=== PATIENT | male | born 1955 | race Caucasian/White ===

== ENCOUNTER → 2016-04-09 09:30 | Outpatient (CLI) | payer MEDICARE ==
[2015-09-26 06:48] VITALS: BMI 28.7
[~2016-04-09 09:30] MED LIST: BAYER CHEWABLE81 MG PO; COZAAR50 MG PO; LIPITOR40 MG PO; PAXIL40 MG PO; PLAVIX75 MG PO
== END | disposition home or self-care (01) ==
LOC: D.US 03-29 10:00
DX: M79.606 Pain in leg, unspecified (principal)

== ENCOUNTER 2016-09-27 11:24 | Observation (INO) | payer MEDICARE ==
[~2016-09-27] VITALS: Ht 170.2 cm; Wt 68.2 kg
--- NOTE | 2016-09-27 11:20 | NUR ---
RECEIVED PT FROM ADMISSIONS WALKING PT VERY ANXIOUS STATING HE IS NOT CRAZY BUT IF HE DOESNT SEE DR FIGUEROA HE IS GOING TO ATTEMPTS AT CALMING PT SOME WHAT CALMING PT HAS CONSENTED TO WEAR TELEMETRY AND ALLOW STAFF TO PLACE IV ACCESS REFUES VITAL SIGNS AT THIS TIME
[2016-09-27 12:00] VITALS: BP 171/90
[2016-09-27 13:10] LABS: BASOPHILS 0.3 % (0-2); EOSINOPHILS 1.1 % (0-7); HEMATOCRIT 42.9 % (42.0-54.0); IMMATURE GRANULOCYTES 0.3 % (0-5); LYMPHOCYTES 15.5 % (15-50); MCV 91.5 fL (80.0-100.0); MEAN PLATELET VOLUME 9.3 fL (7.4-10.4); MONOCYTES 8.2 % (2-11); NEUTROPHILS 74.6 % (40-80); PLATELET COUNT 242 10x3/uL (130-400); RBC 4.69 10x6/uL (4.20-6.10); RDW 12.3 % (11.5-14.5); WBC 7.4 10x3/uL (4.8-10.8)
[2016-09-27 13:15] LABS: ALBUMIN 4.2 g/dL (3.4-5.0); ALKALINE PHOSPHATASE 71 U/L (46-116); ALT (SGPT) 33 U/L (10-68); BILIRUBIN - TOTAL 0.63 mg/dL (0.2-1.3); CALC OSMOLALITY 283 mosm/kg (275-300); CARBON DIOXIDE 23.5 mmol/L (21.0-32.0); CHLORIDE - SERUM 103 mmol/L (98-107); CREATININE - SERUM 0.7 mg/dL (0.6-1.3); GLUCOSE 144 mg/dL (74-106); POTASSIUM - SERUM 3.6 mmol/L (3.5-5.1); PROTEIN - SERUM 7.4 g/dL (6.4-8.2); SODIUM 141 mmol/L (136-145); UREA NITROGEN 13 mg/dL (7-18); eGFR NON AFRICAN AMERICAN > 90 mL/min (90-120)
[2016-09-27 13:25] LABS: CKMB 5.3 U/L (0.0-3.6); CREATINE KINASE 536 UL (21-232); THYROID STIMULATING HORMONE 1.02 uIU/mL (0.36-3.74); TROPONIN-I < 0.017 ng/mL (0.000-0.060)
[2016-09-27] MEDS ORDERED: RISPERDAL1 MG PO (13:34)
[2016-09-27] MEDS ORDERED: ACETAMINOPHEN325 MG PO (13:40)
[2016-09-27] MEDS ORDERED: MYLANTA / MAALO30 ML PO (13:41)
[2016-09-27] MEDS ORDERED: CEPACOL SORE T1 EAC3 PO (13:42)
[2016-09-27] MEDS ORDERED: HYDROXYZINE HCL50 MG (13:43)
[2016-09-27] MEDS ORDERED: VISTARIL25 MG PO (13:44)
[2016-09-27] MEDS ORDERED: IMODIUM2 MG PO (13:45)
[2016-09-27] MEDS ORDERED: CLARITIN 10 MG10 MG PO (13:45)
[2016-09-27] MEDS ORDERED: BENADRYL50 MG PO (13:46)
[2016-09-27] MEDS ORDERED: BENZTROPINE ME0.5 MG PO (13:47)
[2016-09-27] MEDS ORDERED: ONDANSETRON4 MG/2 M3 IV (13:48)
[2016-09-27] MEDS ORDERED: TRIPLE ANTIB28.35 GM TP (13:48)
[2016-09-27 16:00] VITALS: BP 183/96
[2016-09-27 16:30] VITALS: BP 171/90
--- NOTE | 2016-09-27 17:46 | NUR ---
REVIEWED DISCHARGE INSTRUCTION WITH PT STATE UNDERSTAND COPY GIVEN SALINE LOCK DCD TO RFA WITH IV CATHETER INTACT WITHOUT REDNESS OR EDEMA TO SITE PT DISCHARGED PT HOME LEFT UNIT IN STABLE CONDITION VIA W/C WITH ALL PERSONAL BELONGINGS
--- NOTE | 2016-09-27 19:00 | NUR ---
RECEIVED REPORT AND ASSUMED PT CARE FROM DAY SHIFT NURSE @ THIS TIME.
[2016-09-27 19:26] VITALS: Ht 170.2 cm; Wt 68.2 kg
--- NOTE | 2016-09-27 19:46 | NUR ---
Patient Name: ATA MCKEON Admission Status: Urgent Accout number: [id number] Admission Date: 09-27-2016 : 1955 Admission Diagnosis: Attending: STAR Current LOS: 1 Anticipated DC Date: 09-28-2016 Planned Disposition: Inpatient Psych Facility Primary Insurance: [employer] PLANNED EXTERNAL PROVIDER: TO BE DETERMINED Discharge Planning Comments: * Is the patient Alert and Oriented? No 0 * PCP DR GUZMÁN 0 * Preadmission Environment Home Alone 0 * ADLs Independent 0 * Equipment None 0 * Other Equipment NO MEDICAL EQUIPMENT PROVIDER PREFERENCE 0 CM WAS WALKING TO ANOTHER PT'S ROOM, PT DEMANDED CM COME IN. CM MET WITH PT AND ATTEMPTED TO ASSESS PT FOR NEEDS AND DISCHARGE PLANNING. PT WAS NOT COOPERATIVE, REPORTING THE DOCTOR TOLD HIM THAT HE WAS GOING TO GO TO A PSYCHIATRIC FACILITY. PT REPORTS HE IS NOT GOING, HE DOES NOT NEED TO GO, HE NEEDS HIS MEDICATIONS OR HE IS GOING TO HAVE A HEART ATTACK AND HE HAS TOLD DR. BULLARD BUT NO ONE WILL GIVE HIM HIS MEDICATIONS. PT STATES THAT THE DOCTOR TOLD HIM HE IS MANIC, PT STATES THIS IS NOT TRUE. PT KEEPS REPEATING THE SAME THING OVER AND OVER QUICKLY HE CAN. PT REFUSES REDIRECTION. CM SPOKE TO DR GUZMÁN WHO REPORTS THAT PT HAS HAD PSYCHIATRIC CONSULT AND WILL NEED PSYCHIATRIC INPATIENT PLACEMENT SOON THEY CAN GET PT'S BLOOD PRESSURE STABALIZED, POSSIBLY TOMORROW, 09-28-16. PT WILL REQUIRE INPATIENT PSYCHIATRIC TREATMENT, CM TO BEGIN PLACEMENT EFFORTS ONCE PT IS MEDICALLY STABLE. Sock Lining Examiner: Jasvir Montenegro
[2016-09-27 20:00] VITALS: BP 140/108
--- NOTE | 2016-09-27 20:17 | NUR ---
PT HAS REPEATEDLY BEEN REDIRECTED TO HIS ROOM. HE IS SPEAKING IN CHOPPED SENTENCES AND REFERRING TO HIMSELF IN THE THIRD PERSON. KEEPS REPEATING HE HAS BEEN CALLING DR. GUZMÁN'S "EMERGENCY NUMBER" TO TRY AND "SAVE DR GUZMÁN'S MEDICAL LICENSE AND THIS HOSPITAL". STATES [facility] HAS BEEN CONTACTED AND THAT THIS HOSPITAL IS THE REASON THERE ARE SO MANY SUICIDES IN [place]. HE HAS BEEN DISRUPTIVE TO OTHER PT'S AND THEIR VISITORS AND RESIRECTED [facility] TO HIS ROOM. HIS SISTER AND BROTHER IN LAW ARE NOW HERE AT THE BEDSIDE AND SPEAKING TO HIM. PT TAKES HIS PM MEDS AND ATIVAN 0.5 MG AND HALDOL 2 MG PO GIVEN. WILL MONITOR CLOSELY FOR SAFETY.
--- NOTE | 2016-09-27 20:25 | NUR ---
RECEIVED CALL FROM DR FRANK, STATES ANSWERING SERVICE HAS NOTIFIED HIM THAT PT HAS REPEATEDLY CALLED THE ANSWERING SERVICE. MEDICATIONS AND INTERVENTIONS REVIEWED WITH DR FRANK AT THIS TIME. NO NEW ORDERS RECEIVED. WILL CONT TO MONITOR.
[2016-09-27 20:30] LABS: CREATINE KINASE 570 UL (21-232)
[2016-09-27 20:33] LABS: TROPONIN-I < 0.017 ng/mL (0.000-0.060)
--- NOTE | 2016-09-27 21:11 | NUR ---
SISTER REMAINS IN ROOM WITH PT AT THIS TIME. PT IS CALMER AND APPEARS TO BE RESTING. WILL CONT TO MONITOR.
--- NOTE | 2016-09-27 22:06 | NUR ---
PT'S FAMILY MEMBERS ATTEMPTING TO LEAVE AND PT AGITATED. HALDOL 2MG AND ATIVAN 0.5 MG IM TO RT VG GIVEN. PT'S SISTER AND HER SPOUSE DEPARTS AFTER ABOUT 10 MINUTES. PT WATCHING TV ON FAMILY'S DEPARTURE. WILL CONT TO MONITOR.
--- NOTE | 2016-09-27 23:30 | NUR ---
PT RESTING SOUNDLY, RESP EVEN AND UNLABORED. NSR ON MONITOR, HR 90'S. CALL LIGHT WITHIN REACH. WILL CONTINUE TO MONITOR.
--- NOTE | 2016-09-28 03:26 | NUR ---
PT CONT TO REST WELL WITHOUT C/O OR DISTRESS NOTED. RESP EVEN AND UNLABORED. NSR ON MONITOR, HR 65. WILL CONT TO MONITOR.
[2016-09-28 04:17] LABS: CREATINE KINASE 415 UL (21-232); TROPONIN-I < 0.017 ng/mL (0.000-0.060)
--- NOTE | 2016-09-28 07:30 | NUR ---
RESTING QUIETLY EYES CLOSED RESP UNLABORED NAD NOTED
[2016-09-28 08:00] VITALS: BP 105/65
[2016-09-28 08:07] VITALS: BP 90/47
--- NOTE | 2016-09-28 08:14 | NUR ---
DR GUZMÁN HERE TO SEE PT
[2016-09-28] MEDS ORDERED: LISINOPRIL10 MG PO (08:36)
[2016-09-28] MEDS ORDERED: LIPITOR40 MG PO (08:37)
--- NOTE | 2016-09-28 11:13 | NUR ---
JUST GOT OFF THE PHONE WITH THE PATIENTS SISTER. SHE IS VERY UGLY WITH HER WORDS IN REGARDS TO THE PATIENT BEING DISCHARGED. SHE IS REFUSING TO TAKE THE PATIENT HOME. EXPLAINED THAT THE DOCTOR HAS DISCHARGED HIM. EXPLAINED THAT THE PATIENT IS REFUSING TO BE PLACED IN A MENTAL HEALTH FACILITY AND BEING THAT HE IS OF NO HARM TO HIMSELF OR OTHERS, WE HAVE NO REASON TO PUT A HOLD ON HIM. SHE SAID THAT HER AND SOMEONE ARE ON THEIR WAY TO [place] TO TALK TO SOMEONE TO HAVE HIM INVOLUNTARILLY COMMITED TO A "PRIVATE" FACILITY WHERE HE "IS NOT GOING TO BE AROUND A KELLEN OF CRAZY PEOPLE. MY BROTHER IS NOT CRAZY, HE JUST HAD A LITTLE BREAK AND NEEDS TO BE SOMEWHERE FOR 2 WEEKS OR SO." SHE CONTINUED TO ESCULATE AND SPEED UP HER TALKING. SHE WAS ADIMATE THAT THE PATIENT WAS NOT GOING TO BE DISCHARGED TODAY. SHE WANTED THE NUMBER TO DR GUZMÁN'S OFFICE SO THAT SHE COULD TELL HIM HER BROTHER WAS NOT STABLE FOR DISCHARGE AND THAT HE WAS GOING TO HAVE TO KEEP HIM HERE AT THE HOSPITAL. THE OFFICE NUMBER WAS GIVEN TO HER, BUT EXPLAINED THAT THERE WAS NO GUARANTEE THAT HE WOULD TALK TO HER. AT THIS TIME, SHE ENDED THE CONVERSATION WITH ME.
[2016-09-28 12:06] VITALS: BP 86/49
[2016-09-28] MEDS ORDERED: ATIVAN0.5 MG PO (13:40)
--- NOTE | 2016-09-28 14:19 | NUR ---
DISCHARGE INSTRUCTIONS GIVEN TO PATIENT AND FAMILY. MEDICATIONS DISCUSSED WTIH PATIENT AND HE UNDERSTANDS. NEW SCRIPTS WERE ESCRIPTED TO JORGITO THAPA IN [place]. IV DCD WITH TIP INTACT. MONITOR OFF. TO CAR VIA .
== END 2016-09-28 18:16 | disposition home or self-care (01) ==
LOC: D.M2 11:24 → OBSVTIME 12:00 → D.M2 09-28 12:33
PROVIDERS: ADMIT Family Medicine
DX: I10 Essential (primary) hypertension (principal); F33.9 Major depressive disorder, recurrent, unspecified

== ENCOUNTER → 2018-10-02 11:48 | Outpatient (CLI) | payer MEDICAID ==
[2016-09-27 19:26] VITALS: BMI 23.5
[~2018-10-02 11:48] MED LIST changes: +ACETAMINOPHEN325 MG PO; +ATIVAN0.5 MG PO; +BENADRYL50 MG PO; +BENZTROPINE ME0.5 MG PO; +BUPROPION XL300 MG PO; +CEPACOL SORE T1 EAC3 PO; +CLARITIN 10 MG10 MG PO; +HYDROXYZINE HCL50 MG; +IMODIUM2 MG PO; +LISINOPRIL10 MG PO; +MYLANTA / MAALO30 ML PO; +ONDANSETRON4 MG/2 M3 IV; +RISPERDAL1 MG PO; +TRIPLE ANTIB28.35 GM TP; +VISTARIL25 MG PO
--- NOTE | 2018-10-14 09:52 | ST ---
PATIENT:ATA MCKEON MEDICAL RECORD: [id number] SEX: M LOCATION:[facility] ORDER #: ADMISSION DATE: 10/02/18 AGE OF PATIENT: 63 REFERRING PHYSICIAN: INTERPRETING PHYSICIAN: REGINA FIGUEROA MD DATE OF SERVICE: 10/02/2018 Nuclear Stress Test INDICATION: Angina, coronary artery disease, shortness of breath, and hyperlipidemia. He was exercised on standard Farooq protocol for 10 minutes, terminated due to achievement of maximum target heart rate response with 31 mCi of sestamibi injected at peak stress, 11 mCi were used previously for rest images. FINDINGS: Gated SPECT reveals preserved ejection fraction at 64% with decreased thickening and brightening throughout the inferior segments. SPECT imaging Cardiolite was used as myocardial perfusion agent. There are reversible changes anteriorly and apically. This includes the basal, mid, apical anterior segments as well as the apex itself and there is a fixed perfusion defect inferiorly compatible with previous inferior myocardial infarction. The degree of reversibility is mild to moderate. The amount of myocardium involved between the defect is large. OVERALL IMPRESSION: This is an intermediate to high risk nuclear stress test with fixed perfusion defect inferiorly, reversible ischemia anteroapically suggestive of multivessel coronary artery disease. We will proceed with coronary angiography as followup study. TRANSINT:[id number] Voice Confirmation ID: [id number] DOCUMENT ID: [id number] REGINA FIGUEROA MD at 0952 CC: COLT GUZMÁN MD [id number] DICTATION DATE: 10/03/18 1415 HOUSING MANAGER: 10/04/18 0252 DEP CLI 10/02/18 [place] [id number] [place] [id number]
== END | disposition home or self-care (01) ==
LOC: D.HCCARDIO 11:48
PROVIDERS: ATTEND Internal Medicine Interventional Cardiology
DX: I25.110 Atherosclerotic heart disease of native coronary artery with unstable angina pectoris (principal); R06.02 Shortness of breath; E78.5 Hyperlipidemia, unspecified

== ENCOUNTER 2018-10-08 08:03 | Outpatient (CLI) | payer MEDICAID ==
[~2018-10-08] VITALS: Ht 170.2 cm; Wt 72.3 kg
--- NOTE | ~2018-10-08 | HEMODYNAMI ---
PATIENT:ATA MCKEON MEDICAL RECORD: [id number] : 55 LOCATION:[facility] ADMISSION DATE: 10/08/18 Generatedon:10/09/20187:59 Patient name: ATA MCKEON Patient #: [id number] : 1955 Date of study: 10/08/2018 Page: Of Hemodynamic Procedure Report Patient Data Patient Demographics Procedure consent was obtained First Name: ATA Gender: Male Last Name: LINDA : 1955 Middle Initial: ROSALVA Age: 63 year(s) Patient #: [id number] Race: SSN: [id number] Additional ID: [id number] Contact details [address]: [address] [place] [address] State: [place] City: [place] Zip code: [address] Past Medical History History of disease Date Diagnosis Comments 09/26/2015 CAD Allergies Allergen Reaction Date Comments Reported Other allergy 10/08/2018 [facility] Admission Admission Data Admission Date: 10/08/2018 Admission Time: 8:03 Arrival Date: 10/08/2018 Arrival Time: 0:00 Admit Source: Other Insurance Payor: Private Room #: 2 health insurance [facility] #: [id number] Height (in.): 67 BSA: 1.86 (m2) Height (cm.): 170.18 BMI: 25.69 (kg/m2) Weight (lbs.): 164 Weight (kg.): 74.39 Medications upon Admission Medications Dosage Times Administered Last Remarks per Delivery Day Date and Time Aspirin 81 1 (any) Statin (any) 20 Current Diagnosis Diagnosis Description Stable angina Lab Results Lab Result Date: 10/08/2018 Lab Result Time: 0:00 Biochemistry Name Units Result Min Max BUN mg/dl 13 --(--*-)-- 7 18 Creatinine mg/dl 0.9 --(-*--)-- 0.6 1.3 eGFR ml/min 90 --(*---)-- 90 120 NONAFRICAN Procedure Procedure Types Cath Procedure Diagnostic Procedure [facility] w/Coronaries FFR/IVUS FFR Initial Sedation Charges Moderate Sedation up to 15 minutes PCI Procedure Coronary Stent Coronary Stent Initial x2 Coronary Stent Additional Procedure Description Procedure Date Procedure Date: 10/08/2018 Procedure Start Time: 10:46 Procedure End Time: 11:17 Procedure Staff Name Function Cruzhuseyin Fontanez RT Monitor Vimal Dean RN Nurse Nguyễn Shultz MD Performing Physician Law Mejia RT Scrub Elba Verdin RT Monitor Sarah Harvey RT Scrub Procedure Data Cath Procedure Fluoroscopy Diagnostic fluoroscopy Total fluoroscopy Time: 6.2 time: 6.2 min min Diagnostic fluoroscopy Total fluoroscopy dose: dose: 1345 mGy 1345 mGy Contrast Material Contrast Material Type Amount (ml) Isovue 300 152 Entry Location Entry Primary Successful Side Size Upsize Upsize Entry Closure Succes sful Closure Location (Fr) 1 (Fr) 2 (Fr) Remarks Device Remarks Femoral Right 5 Fr 6 Fr Exoseal artery Short Estimated blood loss: 10 ml Diagnostic catheters Device Type Used For End Catheter Placement MULTIPACK Pigtail 5 Fr Ventriculography catheter MULTIPACK JL 4.0 5Fr Procedure catheter MULTIPACK 3DRC 5Fr Procedure catheter Procedure Complications No complications Procedure Medications Medication Administration Route Dosage Oxygen etCO2 Nasal cannula 2 l/min Lidocaine 2% added to field 20 Heparin Flush Bag added to field 2 bags (1000units/500ml NS) 0.9% NaCl I.V. 100 ml/hr Versed I.V. 2 mg Fentanyl I.V. 100 mcg Versed I.V. 2 mg Fentanyl I.V. 50 mcg Heparin Bolus I.V. 4000 units Integrilin (Bolus I.V. 6.8 ml 2mg/ml) Plavix P.O. 600 mg Versed I.V. 1 mg Hemodynamics Rest BSA: 1.86 (m2) O2 Consumption: Estimated: 216.01 (ml/min) O2 Consumption indexed : Estimated:116.13 (ml/min/m) Heart Rate: 68 (bpm) Pressure Samples Time Site Value (mmHg) Purpose Heart Use Rate(bpm) 10:47 LV 112/14,21 Snapshot 61 Gradients Valve Time Site Site Mean SEP/DFP Peak To Heart Use 1 2 (mmHg) (sec/min) Peak Rate (mmHg) (bpm) Aortic 10:48 LV AO 63 Snapshots Pre Cath Intra NCS Post Cath Vital Signs Time Heart Resp SPO2 etCO2 NIBP (mmHg) Rhythm Pain Sedation Rate (ipm) (%) (mmHg) Status Level (bpm) 10:24:24 60 22 99 0 125/75(95) NSR 0 (11) 10(A) , No pain 10:28:36 66 13 98 33.9 126/77(109) NSR 0 (11) 10(A) , No pain 10:32:50 57 16 96 12.8 126/72(104) NSR 0 (11) 10(A) , No pain 10:36:58 60 24 96 0 127/87(102) NSR 0 (11) 10(A) , No pain 10:41:10 55 16 96 30.8 116/73(92) NSR 0 (11) 10(A) , No pain 10:45:13 60 15 94 19.5 118/82(102) NSR 0 (11) 9(A) , No pain 10:49:26 59 11 95 0 137/62(80) NSR 0 (11) 9(A) , No pain 10:53:41 63 13 93 29.3 130/65(89) NSR 0 (11) 9(A) , No pain 10:57:55 64 15 95 12.8 111/58(73) NSR 0 (11) 9(A) , No pain 11:02:03 65 16 94 33.1 104/61(79) NSR 0 (11) 9(A) , No pain 11:06:11 67 16 93 29.3 115/59(81) NSR 0 (11) 9(A) , No pain 11:10:19 68 18 96 0 111/70(93) NSR 0 (11) 9(A) , No pain 11:15:18 62 17 98 31.6 124/79(94) NSR 0 (11) 10(A) , No pain Medications Time Medication Route Dose Verified Delivered Reason Notes Effectiveness by by 10:29:18 Oxygen etCO2 2 Nguyễn Celis used for Nasal l/min Lexii Dean truck cleaner cannula 10:29:27 Lidocaine 2% added 20ml Nguyễn Adrian for local to vial Lexii Shultz MD anesthetic field 10:29:33 Heparin Flush added 2 Nguyễn Adrian used for Bag to bags Lexii Shultz MD procedure (1000units/500ml field NS) 10:29:42 0.9% NaCl I.V. 100 Nguyễn Celis Per physician ml/hr Lexii Dean RN 10:40:55 Versed I.V. 2 mg Nguyễn Celis for sedation Lexii Dean RN 10:41:01 Fentanyl I.V. 100 Nguyễn Celis for sedation mcg Lexii Dean RN 10:48:03 Fentanyl I.V. 50 Nguyễn Celis for sedation mcg Lexii Dean RN 10:48:59 Versed I.V. 2 mg Nguyễn Celis for sedation Lexii Dean RN 10:54:17 Heparin Bolus I.V. 4000 Nguyễn Celis for verif ied units Lexii Dean RN anticoagulation with dr shultz 10:56:22 Integrilin I.V. 6.8 Nguyễn Celis for waste d (Bolus 2mg/ml) ml Lexii Dean RN antiplatelet 3.2 ml therapy of vial 11:01:49 Versed I.V. 1 mg Nguyễn Celis for sedation Lexii Dean RN 11:13:09 Plavix P.O. 600 Ngyuễn Celis for mg Lexii Dean RN antiplatelet therapy Procedure Log Time Note 9:52:02 Informed consent obtained and on chart 9:57:03 Patient allergic to Other allergyLosartan 9:57:16 Patient Height : 67 inches 9:57:19 Patient Weight : 164 lbs 9:57:36 Arrival Date: 10/08/2018 12:00:00 AM 9:58:54 Admit Source: Other 9:58:55 Insurance Payor : Private health insurance 10:05:04 Current Diagnosis : Stable angina 10:07:59 Lab Result : eGFR NONAFRICAN 90 ml/min 10:07:59 Lab Result : Creatinine 0.9 mg/dl 10:07:59 Lab Result : BUN 13 mg/dl 10:08:44 Diagnostic Cath Status : Elective 10:13:36 Procedure Status Elective Heart Cath (OP). 10:13:39 Vimal Dean RN sent for patient. Start room use. 10:13:44 Time tracking: Regular hours (M-F 7:00 - 5:00) 10:13:51 Plan of Care:Hemodynamics will remain stable., Cardiac rhythm will remain stable., Comfort level will be maintained., Respiratory function will remain adequate., Patient/ family verbilizes understanding of procedure., Procedure tolerated without complication., Recovers from procedure without complications.. 10:14:15 Patient received from Pre/Post Procedure Room to CCL 2 Alert and oriented. Tansferred to table in Supine position. 10:15:08 Correct patient and procedure confirmed by team. 10:15:08 Warm blankets applied, and christian hugger turned on for patient comfort. 10:15:09 ECG and BP/O2 sat monitors applied to patient. 10:15:34 H&P Date Dictated: 09/30/2018 Within 30 days and on chart.. 10:15:36 Pre-procedure instructions explained to patient. 10:15:39 Family in waiting room. 10:15:41 Patient NPO since Midnight. 10:15:44 Is the patient allergic to Iodine/contrast media? No. 10:15:47 Was the patient premedicated? Yes 10:16:29 Is patient on blood thinner?No 10:16:35 ACC The patient was administered the following blood thiners within the last 24 hours: ACCAspirin 10:23:08 Patient diabetic? No. 10:23:17 Vital chart was started 10:23:20 Baseline sample Acquired. 10:23:25 Full Disclosure recording started 10:29:18 Oxygen 2 l/min etCO2 Nasal cannula was administered by Vimal Dean RN; used for procedure; 10:29:27 Lidocaine 2% 20ml vial added to field was administered by Nguyễn Shultz MD; for local anesthetic; 10:29:32 Pre procedure: right dorsailis pedis pulse 2+ Normal; easily identifiable; not easily obliterated 10:29:33 Heparin Flush Bag (1000units/500ml NS) 2 bags added to field was administered by Nguyễn Shultz MD; used for procedure; 10:29:42 0.9% NaCl 100 ml/hr I.V. was administered by Vimal Dean RN; Per physician; 10:29:51 Patient pain scale 0/10 ?. 10:30:11 IV patent on arrival in left hand with 0.9% NaCl at O. 10:30:19 Lab results completed and on chart. 10:30:24 Right groin area was prepped with chlora-prep and draped in sterile fashion 10:30:30 Snore? Yes 10:30:32 Sleep apnea? No 10:30:37 Dentures? No ? 10:30:39 Alarms reviewed by Carrie N. 10:30:40 Sharps counted by scrub and verified by RMernaN. 10:30:52 Use device set Femoral Dx 10:30:53 Bag Decanter (2002S) opened to sterile field. 10:30:53 ACIST Syringe (48542) opened to sterile field. 10:30:54 Medline Cath Pack ([id number]) opened to sterile field. 10:30:55 ACIST Hand Control (60040) opened to sterile field. 10:30:56 ACIST Manifold (79823) opened to sterile field. 10:30:59 DIAGNOSTIC Multipack 5Fr catheter set (YV8274) opened to sterile field. 10:31:01 Tegaderm 4 x 4 (1626W) opened to sterile field. 10:31:03 EMERALD Guide Wire (502-937) opened to sterile field. 10:31:03 SHEATH 5FR [place] (VBK025) opened to sterile field. 10:39:15 --------ALL STOP TIME OUT------ 10:39:15 Physician arrived 10:39:16 Final Timeout: patient, procedure, and site verified with staff and physician. All members of the team are in agreement. 10:39:18 Right groin site verified by team. 10:39:34 Fire Safety Assessment: A--An alcohol-based skin anteseptic being used preoperatively., C--Open oxygen or nitrous oxide is being used., D--An ESU, laser, or fiber-optic light is being used. 10:39:40 Physical assessment completed. ASA score P 3 - A patient with severe systemic disease as per Nguyễn Shultz MD. 10:40:42 1) 90+ Normal kidney functon but urine findings or structural abnormalities or genetic trait point to kidney disease. 10:40:46 Maximum allowable contrast dose (3.7 X eGFR X 0.75)250 ml. 10:40:50 Sedation plan: IV Moderate Sedation Medication:Versed, Fentanyl 10:40:55 Versed 2 mg I.V. was administered by Vimal Dean RN; for sedation; 10:41:01 Fentanyl 100 mcg I.V. was administered by Vimal Dean RN; for sedation; 10:43:27 Zero performed for pressure channel P1 10:43:48 Zero performed for pressure channel P1 10:45:05 Procedure started. 10:46:54 Local anesthetic to right femoral artery with Lidocaine 2% by Nguyễn Shultz MD.INITIAL ACCESS ONLY 10:47:07 A 5 Fr sheath was inserted into the Right Femoral artery 10:47:36 J wire advanced. 10:47:45 A MULTIPACK Pigtail 5 Fr catheter was advanced over the wire and used for Ventriculography. 10:48:03 Fentanyl 50 mcg I.V. was administered by Vimal Dean RN; for sedation; 10:48:13 EF : 55 % 10:48:15 Catheter removed. 10:48:31 A MULTIPACK JL 4.0 5Fr catheter was advanced over the wire and used for Procedure. 10:48:59 Versed 2 mg I.V. was administered by Vimal Dean RN; for sedation; 10:49:52 LCA angiography performed. 10:49:54 Catheter removed. 10:50:01 A MULTIPACK 3DRC 5Fr catheter was advanced over the wire and used for Procedure. 10:50:04 RCA angiography performed. 10:50:42 Catheter removed. 10:52:18 [place] Verrata Plus pressure wire (76915V) opened to sterile field. 10:52:54 GUIDE 6FR XBLAD 3.5 catheter ([id number]) opened to sterile field. 10:52:55 CHOICE PT Extra Support 182cm wire ([id number]) opened to sterile field. 10:52:56 INFLATOR Merit BasixCompak (CP7894) opened to sterile field. 10:52:57 SHEATH 6FR [place] (NPF616) opened to sterile field. 10:53:20 Sheath upsized to a 6 Fr Short. 10:53:31 6 Fr XBLAD3.5 guide catheter was inserted over the wire 10:54:17 Heparin Bolus 4000 units I.V. was administered by Vimal Dean RN; for anticoagulation; verified with dr shultz 10:56:22 Integrilin (Bolus 2mg/ml) 6.8 ml I.V. was administered by Vimal Dean RN; for antiplatelet therapy; wasted 3.2 ml of vial 10:57:33 FFR/IFR wire advanced. 10:57:50 dLAD lesion measured at .90 with IFR 11:00:12 Place stent Inflation Number: 1 A COBRA RX 2.5 X 15 Stent was prepped and advanced across the Dist LAD 70. The stent was deployed at 11 MJ for 0:08 (min:sec) 0. 11:00:39 Wire removed. 11:01:12 choice pt wire advanced. 11:01:43 ACT drawn and resulted at 00R seconds. (normal therapeutic range 180-240 seconds). 11:01:49 Versed 1 mg I.V. was administered by Vimal Dean RN; for sedation; 11:01:54 Wire advanced across lesion. 11:03:58 Place stent Inflation Number: 1 A COBRA RX 3.0 X 08 Stent was prepped and advanced across the Prox CX 90. The stent was deployed at 11 MJ for 0:06 (min:sec) 0. 11:04:57 Inflation number: 2 The stent balloon was then re-inflated across the Prox CX 95 to 7 MJ for 0:07 (min:sec) . 11:06:50 Wire redirected to ramus. 11:06:53 Stent catheter was removed intact over wire. 11:07:00 Inflate balloon Inflation number: 2 A EUPHORA 2.5 x 12 Balloon ([id number]) was prepped and advanced across the Ramus 0, then inflated to 7 MJ for 0:10 (min:sec) . 11:07:53 Place stent Inflation Number: 1 A COBRA RX 2.5 X 8 Stent was prepped and advanced across the Ramus 95. The stent was deployed at 11 MJ for 0:10 (min:sec) 0. 11:08:00 Stent catheter was removed intact over wire. 11:08:12 Wire removed. 11:08:13 Guide catheter removed. 11:09:00 EXOSEAL 6Fr (EX600) opened to sterile field. 11:09:57 Sheath removed intact; hemostasis achieved with Exoseal to the Right Femoral artery. 11:10:03 Procedure ended.(Physican Out) 11:10:30 Fluoroscopy time 06.20 minutes. 11:10:40 Fluoroscopy dose: 1345 mGy 11:10:40 Flurop Dose total: 1345 11:10:49 Dose Area Product 57139 mGy/cm. 11:10:54 Contrast amount:Isovue 300 152ml. 11:10:58 Maximum allowable dose exceeded? No. 11:10:59 Sharps counted by scrub and verified by R.N. 11:11:03 Insertion/operative site no bleeding no hematoma. 11:11:08 Post Procedure Pulses reassessed and unchanged 11:11:13 Post-procedure physical assessment completed. ASA score P 3 - A patient with severe systemic disease as per Nguyễn Shultz MD. 11:11:18 Post procedure rhythm: unchanged. 11:11:21 Estimated blood loss: 10 ml 11:11:23 Post procedure instruction explained to patient.Patient verbalizes understanding. 11:12:54 Procedure type changed to Cath procedure, Diagnostic procedure, LHC, LHC w/Coronaries, FFR/IVUS, FFR Initial, Sedation Charges, Moderate Sedation up to 15 minutes, PCI procedure, Coronary Stent, Coronary Stent Initial x2, Coronary Stent Additional 11:12:56 Procedure and supply charges have been captured, reviewed, submitted and are correct. 11:13:09 Plavix 600 mg P.O. was administered by Vimal Dean RN; for antiplatelet therapy; 11:13:32 Procedure Complication : No complications 11:16:21 Vital chart was stopped 11:17:25 See physician's report for complete and final results. 11:17:27 Report given to Pre/Post Procedure Room. 11:17:29 Patient transfered to Pre/Post Procedure Room with Stretcher. 11:17:32 Full Disclosure recording stopped 11:17:32 Procedure ended. 11:17:39 ACC-PCI Only Patient was given prescriptions, or instructed by Nguyễn Shultz MD to start/continue the following medications upon discharge: Plavix 11:17:41 End room use (Document Last) Intervention Summary Intervention Notes Time ActionType Lesion and Equipment Action# Pressure Duration Attributes Used 11:00:12 Place stent Dist LAD COBRA RX 1 11 00:08 2.5 X 15 Stent 11:03:58 Place stent Prox CX COBRA RX 1 11 00:06 3.0 X 08 Stent 11:04:57 Reinflate Prox CX COBRA RX 2 7 00:07 stent 3.0 X 08 balloon Stent 11:07:00 Inflate Ramus EUPHORA 2 7 00:10 balloon 2.5 x 12 Balloon ([id number]) 11:07:53 Place stent Ramus COBRA RX 1 11 00:10 2.5 X 8 Stent Device Usage Item Name Manufacture Quantity Catalog Number Hospital Part Current Minimal Lot# / Charge Number Stock Stock Serial# Code ACIST Syringe Acist 1 70216 933820 865749 890738 20 (57228) Medical Systems Inc Bag Decanter Microtek 1 213123 88320 350540 5 () Medical Inc. Medline Cath Medline 1 [id number] 074774 15104 866842 5 Pack ([id number]) ACIST Hand Acist 1 31685 251084 224059 536113 5 Control Medical (68260) Systems Inc ACIST Manifold Acist 1 70417 801700 457013 093198 5 (18784) Medical Systems Inc DIAGNOSTIC Cardinal 1 MG6722 452160 65976 660534 30 Multipack 5Fr Health catheter set (FP4855) Tegaderm 4 x 4 3M 1 1626W 196371 299097 007037 5 (1626W) SHEATH 5FR Terumo 1 WTV033 633703 230023 342995 5 [place] (AQK463) EMERALD Guide Cardinal 1 502-455 321627 415825 077689 5 Wire (502-455) Health MULTIPACK Cardinal 1 895899 5 Pigtail 5 Fr Health catheter MULTIPACK JL Cardinal 1 606393 5 4.0 5Fr Health catheter MULTIPACK 3DRC Cardinal 1 573166 5 5Fr catheter Health [place] 1 96734A 289469 055642642 856351 5 Verrata Plus pressure wire (01706U) GUIDE 6FR Cardinal 1 41216446 420945 569310 462855 10 XBLAD 3.5 Health catheter (76400698) CHOICE PT Cranberry 1 [id number] 404669 706507 543975 5 Extra Support Scientific 182cm wire (6828823N2) INFLATOR Merit Merit 1 DY9206 355855 158446 590644 15 Arnica Medical (AY8425) SHEATH 6FR Terumo 1 XMC754 229987 734057 793135 40 [place] (YYB918) COBRA RX 2.5 X Celonova 1 222574 508653260 6875236 1 [id number] 15 stent Biosciences () COBRA RX 3.0 X Celonova 1 201668 212034073 9276408 4 [id number] 08 stent Biosciences () COBRA RX 2.5 X Celonova 1 400753 576117551 9936724 4 2 [id number] 8 stent Biosciences () EXOSEAL 6Fr Cardinal 1 EX600 719513 613409 597877 10 (EX600) Health EUPHORA 2.5 x Medtronic 1 [id number] 697427 090151 987971 5 12 Balloon ([id number]) Signature Audit [place] Stage Time Signature Unsigned Intra-Procedure 10/08/2018 Vimal Fontanez RT(R) 11:18:26 AM 10/08/2018 4:33:20 PM Intra-Procedure 10/08/2018 Cruz Mejia RT(R) 4:40:59 PM RT(R) 10/09/2018 7:52:11 AM Intra-Procedure 10/09/2018 Law Mejia 7:59:18 AM RT(R) Signatures Monitor : Cruz Fontanez RT Signature : Date : Time : Nurse : Vimal Dean RN Signature : Date : Time : Performing Physician : Signature : Nguyễn Shultz MD Date : Time : Monitor : Elba Verdin Signature : RT Date : Time : [place] [id number] [place] [address]
[~2018-10-08 08:03] MED LIST changes: -BUPROPION XL300 MG PO
[2018-10-08] MEDS ORDERED: BUPROPION XL300 MG PO (08:17)
[2018-10-08 08:28] VITALS: BP 127/80; Ht 170.2 cm; Wt 72.3 kg
[2018-10-08 09:15] LABS: CALC OSMOLALITY 283 mosm/kg (275-300); CALCIUM 8.6 mg/dL (8.5-10.1); CARBON DIOXIDE 23.9 mmol/L (21.0-32.0); CHLORIDE - SERUM 107 mmol/L (98-107); CHOLESTEROL, TOTAL 159 mg/dL (0-200); CREATININE - SERUM 0.9 mg/dL (0.6-1.3); GLUCOSE 114 mg/dL (74-106); HDL CHOLESTEROL 53 mg/dL (32-96); LDL CHOLESTEROL 90 mg/dL (0-100); LDL-HDL RATIO 1.7 ratio (1.5-3.5); POTASSIUM - SERUM 3.9 mmol/L (3.5-5.1); SODIUM 142 mmol/L (136-145); TRIGLYCERIDE 80 mg/dL (30-200); UREA NITROGEN 13 mg/dL (7-18); eGFR NON AFRICAN AMERICAN > 90 mL/min (90-120)
[2018-10-08 09:28] LABS: BASOPHILS 0.4 % (0-2); EOSINOPHILS 3.9 % (0-7); HEMATOCRIT 42.7 % (42.0-54.0); HEMOGLOBIN 15.1 g/dL (13.5-17.5); IMMATURE GRANULOCYTES 0.1 % (0-5); LYMPHOCYTES 37.7 % (15-50); MCH 32.4 pg (26.0-34.0); MCHC 35.4 g/dL (31.0-37.0); MCV 91.6 fL (80.0-100.0); MEAN PLATELET VOLUME 9.2 fL (7.4-10.4); MONOCYTES 7.9 % (2-11); PLATELET COUNT 211 10x3/uL (130-400); RBC 4.66 10x6/uL (4.20-6.10); RDW 12.7 % (11.5-14.5); WBC 7.5 10x3/uL (4.8-10.8)
--- NOTE | 2018-10-08 11:30 | NUR ---
PT RECEIVED VIA STRETCHER FROM SOFTWARE [employer]AL[employer] SPECIALIST [employer]. PT DROWSY BUT RESPONDS TO VERBAL STIMULI. PT DENIES CHEST PAIN OR DISCOMFORT. IV PATENT INFUSING VIA ORDERS. R GROIN W 6FR EXOCELE, DRESSING CDI NO BLEEDING OR HEMATOMA NOTED. LEG PINK AND WARM AND PEDAL PULSES PALPABLE. HR NSR RATE 60, BP 131/81, O2 SAT 98 ON 2L VIA NC. PT INSTRUCTED TO KEEP HEAD ON PILLOW AND LEG STRAIGHT, HE VERBALIZED UNDERSTANDING. CALL LIGHT IN REACH, DENIES NEEDS
[2018-10-08] MEDS ORDERED: PLAVIX75 MG PO (11:36)
--- NOTE | 2018-10-08 12:00 | NUR ---
PT RESTING COMFORTABLY, R GROIN SOFT, DRESSING CDI NO BLEEDING OR SWELLING NOTED. LEG PINK AND WARM, PEDAL PULSES PALPABLE. COLA AND JUICE GIVEN PER REQUEST. DENIES NAUSEA OR PAIN AT THIS TIME. CALL LIGHT IN REACH.
--- NOTE | 2018-10-08 12:45 | NUR ---
PT STILL RESTING W/O COMPLAINTS. VSS. R GROIN SOFT, NO BLEEDING OR SWELLING NOTED. CALL LIGHT IN REACH.
--- NOTE | 2018-10-08 13:15 | NUR ---
PT CONTINUES TO SLEEP COMFORTABLY. GROIN REMAINS SOFT NO BLEEDING OR SWELLING NOTED. LEG PINK AND WARM, PEDAL PULSES PALPABLE. TOLERATING FLUIDS. DENIES PAIN OR NEEDS AT THIS TIME. CALL LIGHT IN REACH
--- NOTE | 2018-10-08 13:47 | NUR ---
PT SLEEPING, NO CHANGE IN CONDITION. GROIN REMAINS W/O BLEEDING OR SWELLING. VSS. CALL LIGHT IN REACH
--- NOTE | 2018-10-08 14:11 | NUR ---
GROIN DRESSING REMAINS CDI NO BLEEDING OR HEMATOMA NOTED. HOB ELEVATED SLIGHTLY. SANDWICH TRAY SERVED. VSS. IV PATENT INFUSING VIA ORDERS. CALL LIGHT IN REACH. PT DENIES PAIN OR NEEDS AT THIS TIME.
--- NOTE | 2018-10-08 14:45 | NUR ---
PT SITTING UP WATCHING TV, TOLERATED SANDWICH AND DRINK W/O NAUSEA. DENIES PAIN OR DISCOMFORT. GROIN DRESSING REMAINS CDI NO BLEEDING OR SWELLING NOTED. VSS. CALL LIGHT IN REACH
--- NOTE | 2018-10-08 15:05 | NUR ---
DISCHARGE INSTRUCTIONS REVIEWED W PT, EDUCATED ON IMPORTANCE OF GETTING PLAVIX FILLED AND STARTING IT TOMORROW. HE VERBALIZED UNDERSTANDING. IV REMOVED W CATH INTACT, MONITORS REMOVED. PT UP TO DRESS FOR DISCHARG
--- NOTE | 2018-10-08 15:15 | NUR ---
PT AMBULATED TO BR, VOIDING W/O DIFFICULITY. 1525 PT DISCHARGED VIA WC TO PRIVATE VEHICLE W RIDE FROM FRIEND WITH ALL BELONGINGS.
--- NOTE | 2018-10-14 09:52 | OP ---
PATIENT NAME: ATA MCKEON MEDICAL RECORD: [id number] :55 LOCATION:D.CAT ADMISSION DATE: SURGEON: REGINA FIGUEROA MD DATE OF OPERATION: 10/08/2018 DATE OF SERVICE: 10/08/2018 PROCEDURES: 1. PTCA stent LAD. 2. PTCA stent left circumflex. 3. PTCA stent ramus intermedius. 4. IFR. 5. Left heart catheterization. 6. Selective coronary angiography. 7. Left ventriculogram. INDICATION: Angina and coronary artery disease. Nuclear stress test showing anterolateral ischemia. PROCEDURE IN DETAIL: After informed consent was obtained and after a detailed description of the risks, benefits as well as alternative therapies, the patient elected to proceed with angiogram and angioplasty. The right femoral area was prepped and draped in normal sterile fashion. Right femoral artery was cannulated via modified Seldinger technique with placement of 6-Ukrainian sheath. All catheters exchanged through this sheath. FINDINGS: Left ventriculogram was performed in standard 30-degree NELSON view, reveals good cardiac wall motion, ejection fraction 55%. SELECTIVE CORONARY ANGIOGRAPHY: 1. Left main is with no significant angiographic disease. 2. Left anterior descending has a 70% stenosis in the mid vessel. IFR was borderline at 90%; however, this correlates with the nuclear stress test defect anteriorly. 3. Left circumflex has 90% stenosis at the ostium. The ramus intermedius has 95% stenosis at the ostium. After this in the ramus intermedius, there was a previously placed stent that is widely patent. 4. The right coronary has previously placed stent that is widely patent. No significant disease elsewise of the RCA or its branches. PTCA STENT OF THE LAD: The stent used was a 2.5 x 15 mm Cobra. Result was 0% residual stenosis. PTCA STENT OF THE LEFT CIRCUMFLEX: The stent used was a 3.0 x 8 mm Cobra. Result was 0% residual stenosis. PTCA STENT OF THE RAMUS INTERMEDIUS: The stent used was a 2.5 x 8 mm Cobra. Result was 0% residual stenosis. OVERALL IMPRESSION: Successful percutaneous transluminal coronary angioplasty stent of the left anterior descending going from 70% initial stenosis to 0% residual stenosis. Successful percutaneous transluminal angioplasty stent of the left circumflex going from 90% initial stenosis to 0% residual stenosis. Successful percutaneous transluminal coronary angioplasty stent of the ramus intermedius going from 95% initial stenosis to 0% residual stenosis. OPERATIVE REPORT [id number] ATA MCKEON TRANSINT:[id number] Voice Confirmation ID: [id number] DOCUMENT ID: [id number] REGINA FIGUEROA MD at 0952 CC: [id number] DICTATION DATE: 10/08/18 1115 FINANCE DIRECTOR: 10/08/18 1138 DEP CLI 10/08/18 [place] [id number]
== END 2018-10-08 15:25 | disposition home or self-care (01) ==
LOC: D.CATH 08:03
PROVIDERS: ATTEND Internal Medicine Interventional Cardiology
DX: I25.119 Atherosclerotic heart disease of native coronary artery with unspecified angina pectoris (principal); R94.39 Abnormal result of other cardiovascular function study; Z01.812 Encounter for preprocedural laboratory examination

== ENCOUNTER 2019-05-15 08:36 | Outpatient (CLI) | payer MEDICARE ==
[~2019-05-15] VITALS: Ht 170.2 cm; Wt 74.1 kg
--- NOTE | ~2019-05-15 | OP ---
PATIENT NAME: ATA MCKEON MEDICAL RECORD: [id number] :55 LOCATION:D.CAT ADMISSION DATE: SURGEON: REGINA FIGUEROA MD DATE OF OPERATION: 05/15/2019 PROCEDURES: 1. Percutaneous transluminal coronary angioplasty stent ramus intermedius. 2. Percutaneous transluminal coronary angioplasty stent of left circumflex. 3. Left heart catheterization. 4. Selective coronary angiography. 5. Left ventriculogram. INDICATION: Angina and coronary artery disease. PROCEDURE PERFORMED: After informed consent was obtained, detailed description of risks, benefits as well as alternative therapies, the patient elected to proceed with angiogram and angioplasty. The right femoral area was prepped and draped in normal sterile fashion. Right femoral artery was cannulated via modified Seldinger technique with placement of 6-[place]ij[place] sheath. All catheters exchanged through this sheath. FINDINGS: The left ventriculogram was performed in standard 30-degree NELSON view, reveals good cardiac wall motion, ejection fraction estimated 60%. SELECTIVE CORONARY ANGIOGRAPHY: 1. Left main is with no significant angiographic disease. 2. Left anterior descending has moderate irregularities, but no flow-limiting stenosis. 3. The left circumflex has 95% stenosis at the ostium. 4. Ramus intermedius has 95% stenosis at the ostium. 5. The right coronary has previously placed stent that is widely patent with no significant restenosis. No disease elsewise of the RCA or its branches. PTCA STENT OF THE CIRCUMFLEX AND RAMUS INTERMEDIUS: The ramus intermedius was addressed with a 2.75 x 8 mm [place] and the circumflex with a 3.0 x 8 mm [place]. Result was 0% residual stenosis. OVERALL IMPRESSION: Successful percutaneous transluminal coronary angioplasty stent of the left circumflex and the ramus intermedius, both going from 95% initial stenosis to 0% residual. TRANSINT:[id number] Voice Confirmation ID: [id number] DOCUMENT ID: [id number] REGINA FIGUEROA MD CC: [id number] DICTATION DATE: 05/15/19 1341 PRECISION LENS POLISHER: 05/15/19 1846 DEP CLI 05/15/19 [facility] [address] [id number]
--- NOTE | ~2019-05-15 | HEMODYNAMI ---
PATIENT:ATA MCKEON MEDICAL RECORD: [id number] : 55 LOCATION:[facility] ADMISSION DATE: 05/15/19 Generatedon:05/15/201913:43 Patient name: ATA MCKEON Patient #: [id number] : 1955 Date of study: 05/15/2019 Page: Of Hemodynamic Procedure Report Patient Data Patient Demographics Procedure consent was obtained First Name: ATA Gender: Male Last Name: LINDA : 1955 Middle Initial: ROSALVA Age: 64 year(s) Patient #: [id number] Race: SSN: [id number] Additional ID: [id number] Contact details Address: [address] [place] [address] [place] B[place]IG[place] State: [place] City: [place] Zip code: [address] Past Medical History History of disease Date Diagnosis Comments 09/26/2015 CAD Allergies Allergen Reaction Date Comments Reported Other allergy 10/08/2018 Losartan Other allergy 05/15/2019 losartan Admission Admission Data Admission Date: 05/15/2019 Admission Time: 8:36 Arrival Date: 05/15/2019 Arrival Time: 0:00 Admit Source: Emergency Insurance Payor: Medicare department [facility] #: [id number] Height (in.): 67 BSA: 1.85 (m2) Height (cm.): 170.18 BMI: 25.53 (kg/m2) Weight (lbs.): 163 Weight (kg.): 73.94 Lab Results Lab Result Date: 05/15/2019 Lab Result Time: 0:00 Biochemistry Name Units Result Min Max BUN mg/dl 12 --(-*--)-- 7 18 CK-MB ng/ml 0.8 --(*---)-- 0 3.6 Creatinine mg/dl 0.9 --(-*--)-- 0.6 1.3 eGFR ml/min 90 --(*---)-- 90 120 NONAFRICAN Troponin l ng/ml 0.017 --(-*--)-- 0 0.06 CBC Name Units Result Min Max Hematocrit % 49.5 --(--*-)-- 42 54 Hemoglobin g/dl 49.5 --(----)-* 13.5 17.5 Procedure Procedure Types Cath Procedure Diagnostic Procedure [facility] w/Coronaries Sedation Charges Moderate Sedation up to 30 minutes PCI Procedure Coronary Stent Coronary Stent Initial x2 Hemochron ACT Test Procedure Description Procedure Date Procedure Date: 05/15/2019 Procedure Start Time: 13:18 Procedure End Time: 13:41 Procedure Staff Name Function Nguyễn Shultz MD Performing Physician Sarah Harvey RT Monitor Lauren Edgar RN Nurse Lulú Jensen RT Scrub Procedure Data Cath Procedure Fluoroscopy Diagnostic fluoroscopy Total fluoroscopy Time: 7 time: 7 min min Diagnostic fluoroscopy Total fluoroscopy dose: 342 dose: 342 mGy mGy Contrast Material Contrast Material Type Amount (ml) Isovue 370 122 Entry Location Entry Primary Successful Side Size Upsize Upsize Entry Closure Succes sful Closure Location (Fr) 1 (Fr) 2 (Fr) Remarks Device Remarks Femoral Right 6 Fr Exoseal artery Short Estimated blood loss: 10 ml Diagnostic catheters Device Type Used For End Catheter Placement MULTIPACK Pigtail 5 Fr Procedure catheter MULTIPACK JL 4.0 5Fr Procedure catheter MULTIPACK 3DRC 5Fr Procedure catheter Procedure Complications No complications Procedure Medications Medication Administration Route Dosage 0.9% NaCl I.V. 100 ml/hr Oxygen etCO2 Nasal cannula 2 l/min Lidocaine 2% added to field 20 Heparin Flush Bag added to field 2 bags (1000units/500ml NS) Versed I.V. 2 mg Fentanyl I.V. 50 mcg Versed I.V. 2 mg Fentanyl I.V. 50 mcg Versed I.V. 2 mg Fentanyl I.V. 50 mcg Versed I.V. 2 mg Fentanyl I.V. 50 mcg Ativan 2 mg Heparin Bolus I.V. 4000 units Integrilin (Bolus I.V. 6.8 ml 2mg/ml) Integrilin (Bolus I.V. 3.2 ml 2mg/ml) Plavix P.O. 600 mg Hemodynamics Rest BSA: 1.85 (m2) HGB: 49.5 (g/dl) O2 Consumption: Estimated: 214.38 (ml/min) O2 Co nsumption indexed: Estimated:115.88 (ml/min/m) Heart Rate: 68 (bpm) Snapshots Pre Cath Intra NCS Post Cath Vital Signs Time Heart Resp SPO2 etCO2 NIBP (mmHg) Rhythm Pain Sedation Rate (ipm) (%) (mmHg) Status Level (bpm) 12:55:15 58 12 98 27 171/89(112) NSR 0 (11) 10(A) , No pain 12:59:35 60 13 100 12.1 150/88(110) NSR 0 (11) 10(A) , No pain 13:03:50 65 14 100 12.1 139/82(100) NSR 0 (11) 10(A) , No pain 13:07:59 60 15 99 38 134/79(114) NSR 0 (11) 10(A) , No pain 13:12:15 59 11 98 14 122/59(79) NSR 0 (11) 10(A) , No pain 13:16:19 71 10 98 18.2 138/83(111) NSR 0 (11) 10(A) , No pain 13:20:25 63 12 100 38 133/93(130) NSR 0 (11) 10(A) , No pain 13:24:31 76 11 100 39.6 133/84(108) NSR 0 (11) 10(A) , No pain 13:28:39 78 14 99 35.8 132/80(108) NSR 0 (11) 10(A) , No pain 13:32:50 77 12 99 41.1 141/69(112) NSR 0 (11) 10(A) , No pain 13:36:58 80 14 100 35 151/88(124) NSR 0 (11) 10(A) , No pain 13:41:10 78 13 99 35 158/93(132) NSR 0 (11) 10(A) , No pain Medications Time Medication Route Dose Verified Delivered Reason Notes Effectiveness by by 12:54:17 0.9% NaCl I.V. 100 Nguyễn Peaceyla used for ml/hr Lexii Edgar wardrobe coordinator 12:54:23 Oxygen etCO2 2 Nguyễn Ascencioa used for Nasal l/min Lexii Edgar procedure cannula RN 12:54:28 Lidocaine 2% added 20ml Nguyễn Adrian for local to vial Lexii Shultz MD anesthetic field 12:54:32 Heparin Flush added 2 Nguyễn Adrian used for Bag to bags Lexii Shultz MD procedure (1000units/500ml field NS) 13:07:47 Versed I.V. 2 mg Nguyễn Lauren for sedation Lexii Edgar RN 13:07:58 Fentanyl I.V. 50 Nguyễn Lauren for sedation mcg Lexii Edgar RN 13:11:07 Versed I.V. 2 mg Nguyễn Lauren for sedation Lexii Edgar RN 13:11:14 Fentanyl I.V. 50 Nguyễn Lauren for sedation mcg Lexii Edgar RN 13:15:01 Versed I.V. 2 mg Nguyễn Lauren for sedation Lexii Edgar RN 13:15:07 Fentanyl I.V. 50 Nguyễn Lauren for sedation mcg Lexii Edgar RN 13:20:11 Versed I.V. 2 mg Nguyễn Lauren for sedation Lexii Edgar RN 13:20:25 Fentanyl I.V. 50 Nguyễn Lauren for sedation mcg Lexii Edgar RN 13:23:32 Ativan IVP 2 mg Nguyễn Lauren for sedation Lexii Edgar RN 13:23:57 Heparin Bolus I.V. 4000 Nguyễn Lauren for verif ied units Lexii Edgar anticoagulation with Dr. TED Shultz 13:24:09 Integrilin I.V. 6.8 Nguyễn Lauren for (Bolus 2mg/ml) ml Lexii Edgar antiplatelet RN therapy 13:24:21 Integrilin I.V. 3.2 Nguyễn Lauren for (Bolus 2mg/ml) ml Lexii Edgar antiplatelet RN therapy 13:24:26 Plavix P.O. 600 Nguyễn Lauren for mg Lexii Edgar antiplatelet RN therapy Procedure Log Time Note 12:24:31 Informed consent obtained and on chart 12:25:16 ACC Patient presents with Unstable Angina CCS Anginal Class 4--Inability to carry out any physical activity w/o angina. Angina may occur at rest. 12:25:19 Procedure Status Urgent Heart Cath (IP). 12:25:22 Lauren Edgar RN sent for patient. Start room use. 12:25:23 Time tracking: Regular hours (M-F 7:00 - 5:00) 12:25:27 Plan of Care:Hemodynamics will remain stable., Cardiac rhythm will remain stable., Comfort level will be maintained., Respiratory function will remain adequate., Patient/ family verbilizes understanding of procedure., Procedure tolerated without complication., Recovers from procedure without complications.. 12:25:38 H&P Date Dictated: 05/15/2019 Within 30 days and on chart.. 12:25:53 Patient allergic to Other allergylosartan 12:26:03 Is the patient allergic to Iodine/contrast media? No. 12:26:17 Was the patient premedicated? N/A 12:33:14 Arrival Date: 05/15/2019 12:00:00 AM 12:33:15 Admit Source: Emergency department 12:33:22 Insurance Payor : Medicare 12:34:04 Patient Height : 67 inches 12:34:15 Patient Weight : 163 lbs 12:34:24 Diagnostic Cath Status : Emergency 12:36:00 Stress Test: no; N/A ? 12:36:03 Risk of Mortality: 0.8 12:36:06 Risk of blood transfusion: 1.0 12:36:09 Risk of EULALIO: 3.0 12:36:11 Alarms reviewed by R. N. 12:36:11 Sharps counted by scrub and verified by R.N. 12:37:04 Lab Result : BUN 12 mg/dl 12:37:04 Lab Result : Creatinine 0.9 mg/dl 12:37:04 Lab Result : CK-MB 0.8 ng/ml 12:37:04 Lab Result : Troponin l 0.017 ng/ml 12:37:04 Lab Result : eGFR NONAFRICAN 90 ml/min 12:37:05 Lab Result : Hemoglobin 49.5 g/dl 12:37:05 Lab Result : Hematocrit 49.5 % 12:37:08 Lab results completed and on chart. 12:37:18 Patient NPO since Lunch. 12:37:23 Pre-procedure instructions explained to patient. 12:37:24 Pre-op teaching completed and patient verbalized understanding. 12:42:54 Patient received from ED to CCL 3 Alert and oriented. Tansferred to table in Supine position. 12:42:55 Warm blankets applied, and christian hugger turned on for patient comfort. 12:42:56 Correct patient and procedure confirmed by team. 12:42:56 Correct patient and procedure confirmed by team. 12:43:05 Family in waiting room. 12:54:09 Vital chart was started 12:54:17 0.9% NaCl 100 ml/hr I.V. was administered by Lauren Edgar RN; used for procedure; Verbal order read back and verified. 12:54:23 Oxygen 2 l/min etCO2 Nasal cannula was administered by Lauren Edgar RN ; used for procedure; Verbal order read back and verified. 12:54:28 Lidocaine 2% 20ml vial added to field was administered by Nguyễn Shultz MD; for local anesthetic; Verbal order read back and verified. 12:54:32 Heparin Flush Bag (1000units/500ml NS) 2 bags added to field was administered by Nguyễn Shultz MD; used for procedure; Verbal order read back and verified. 13:00:29 Is patient on blood thinner?No 13:00:35 Patient diabetic? No. 13:00:37 If diabetic: On Metformin? N/A 13:00:40 - 13:00:41 ----Pre-sedation anethsthesia assessment.---- 13:00:45 Previous problem with sedation/anesthesia? No ? 13:00:46 Snore? Yes 13:00:47 Sleep apnea? No 13:00:48 Deviated septum? No 13:00:51 Opens mouth fully? Yes 13:00:53 Sticks out tongue? Yes 13:00:56 Airway obstruction? No ? 13:00:59 Dentures? No ? 13:01:08 Pre procedure: right dorsailis pedis pulse 2+ Normal; easily identifiable; not easily obliterated 13:01:12 Patient pain scale 0/10 ?. 13:01:18 IV patent on arrival in left antecubital with 0.9% NaCl at [facility]. 13:01:24 Right groin area was prepped with chlora-prep and draped in sterile fashion 13:01:29 ECG and BP/O2 sat monitors applied to patient. 13:01:30 Baseline sample Acquired. 13:01:32 Full Disclosure recording started 13:01:37 Rhythm: sinus rhythm 13:04:03 Use device set Femoral Dx 13:06:17 --------ALL STOP TIME OUT------ 13:06:17 Final Timeout: patient, procedure, and site verified with staff and physician. All members of the team are in agreement. 13:06:19 Right groin site verified by team. 13:06:22 Fire Safety Assessment: A--An alcohol-based skin anteseptic being used preoperatively., C--Open oxygen or nitrous oxide is being used., D--An ESU, laser, or fiber-optic light is being used. 13:06:26 Physical assessment completed. ASA score P 2 - A patient with mild systemic disease as per Nguyễn Shultz MD. 13:06:28 1) 90+ Normal kidney functon but urine findings or structural abnormalities or genetic trait point to kidney disease. 13:06:31 Maximum allowable contrast dose (3.7 X eGFR X 0.75)250 ml. 13:06:36 Sedation plan: IV Moderate Sedation Medication:Versed, Fentanyl 13:06:43 ACIST Syringe (77957) opened to sterile field. 13:06:44 Bag Decanter (2002S) opened to sterile field. 13:06:44 Medline Cath Pack ([id number]) opened to sterile field. 13:06:46 ACIST Hand Control (22161) opened to sterile field. 13:06:46 ACIST Manifold (15567) opened to sterile field. 13:06:47 DIAGNOSTIC Multipack 5Fr catheter set (QX1590) opened to sterile field. 13:06:48 SHEATH 5FR Saffell (CNF165) opened to sterile field. 13:06:49 EMERALD Guide Wire (754-119) opened to sterile field. 13:07:47 Versed 2 mg I.V. was administered by Lauren Edgar RN; for sedation; Verbal order read back and verified. 13:07:58 Fentanyl 50 mcg I.V. was administered by Lauren Edgar RN; for sedation ; Verbal order read back and verified. 13:11:07 Versed 2 mg I.V. was administered by Lauren Edgar RN; for sedation; Verbal order read back and verified. 13:11:14 Fentanyl 50 mcg I.V. was administered by Lauren Edgar RN; for sedation ; Verbal order read back and verified. 13:15:01 Versed 2 mg I.V. was administered by Lauren Edgar RN; for sedation; Verbal order read back and verified. 13:15:07 Fentanyl 50 mcg I.V. was administered by Lauren Edgar RN; for sedation ; Verbal order read back and verified. 13:18:06 Procedure started. 13:18:12 Local anesthetic to right femoral artery with Lidocaine 2% by Nguyễn Shultz MD.INITIAL ACCESS ONLY 13:18:18 SHEATH 6FR Saffell (RUM258) opened to sterile field. 13:18:23 A 6 Fr Short sheath was inserted into the Right Femoral artery 13:19:29 A MULTIPACK Pigtail 5 Fr catheter was advanced over the wire and used for Procedure. 13:20:04 LV gram done using NELSON 13:20:06 Injector settings: Ml/sec: 5, Volume: 15, 13:20:11 Versed 2 mg I.V. was administered by Lauren Edgar RN; for sedation; Verbal order read back and verified. 13:20:12 EF : 60 % 13:20:13 Catheter removed. 13:20:19 A MULTIPACK JL 4.0 5Fr catheter was advanced over the wire and used for Procedure. 13:20:25 Fentanyl 50 mcg I.V. was administered by Lauren Edgar RN; for sedation ; Verbal order read back and verified. 13:21:25 LCA angiography performed. 13:21:42 Catheter removed. 13:21:49 A MULTIPACK 3DRC 5Fr catheter was advanced over the wire and used for Procedure. 13:21:52 RCA angiography performed. 13:22:23 Catheter removed. 13:22:24 Proceeding to intervention. 13:22:33 Use device set TAU PCI 13:23:20 Tegaderm 4 x 4 (1626W) opened to sterile field. 13:23:22 INFLATOR Merit BasixCompak (OQ0268) opened to sterile field. 13:23:25 Asahi Minamo 190cm wire opened to sterile field. 13:23:32 Ativan 2 mg IVP was administered by Lauren Edgar RN; for sedation; Verbal order read back and verified. 13:23:36 GUIDE 6FR XBLAD 3.5 catheter ([id number]) opened to sterile field. 13:23:57 Heparin Bolus 4000 units I.V. was administered by Lauren Edgar RN; for anticoagulation; verified with Dr. Shultz Verbal order read back and verified. 13:24:09 Integrilin (Bolus 2mg/ml) 6.8 ml I.V. was administered by Lauren Edgar RN; for antiplatelet therapy; Verbal order read back and verified. 13:24:21 Integrilin (Bolus 2mg/ml) 3.2 ml I.V. was administered by Lauren Edgar RN; for antiplatelet therapy; Verbal order read back and verified. 13:24:26 Plavix 600 mg P.O. was administered by Lauren Edgar RN; for antiplatelet therapy; Verbal order read back and verified. 13:25:20 6 Fr XBLAD 3.5 guide catheter was inserted over the wire 13:25:24 MINAMO 190 wire advanced. 13:25:26 Wire advanced across lesion. 13:25:46 Pre PCI Site: [place] Circ has 90% stenosis. 13:26:45 The HI RX 3.0 x 08 stent ([id number]) was advanced then removed because of failure to cross lesion 13:28:34 Inflate balloon Inflation number: 1 A EUPHORA 3.0 x 10 balloon ([id number]) was prepped and advanced across the Mid CX , then inflated to 13 MJ for 0:00 (min:sec) . 13:28:43 Inflation number: 2 The EUPHORA 3.0 x 10 balloon ([id number]) was reinflated across the Mid CX , to 11 MJ for 0:00 (min:sec) . 13:28:56 Inflation number: 3 The EUPHORA 3.0 x 10 balloon ([id number]) was reinflated across the Mid CX , to 11 MJ for 0:00 (min:sec) . 13:29:11 Balloon removed over the wire. 13:30:27 Place stent Inflation Number: 4 A HI RX 3.0 x 08 stent ([id number]) was prepped and advanced across the Mid CX . The stent was deployed at 17 MJ for 0:00 (min:sec) . 13:30:52 Wire redirected to RAMUS. 13:32:14 Pre PCI Site: [place] Ramus has 90% stenosis. 13:32:37 Inflation number: 1 The stent balloon was then re-inflated across the Ramus to 9 MJ for 0:00 (min:sec) . 13:33:00 Inflation number: 2 The stent balloon was then re-inflated across the Ramus to 11 MJ for 0:00 (min:sec) . 13:33:15 Stent catheter was removed intact over wire. 13:35:25 Place stent Inflation Number: 3 A HI RX 2.75 x 08 stent ([id number] ) was prepped and advanced across the Ramus . The stent was deployed at 13 MJ for 0:00 (min:sec) . 13:35:42 Stent catheter was removed intact over wire. 13:35:43 Wire removed. 13:35:44 Guide catheter removed. 13:35:48 EXOSEAL 6Fr (EX600) opened to sterile field. 13:35:57 Sheath removed intact; hemostasis achieved with Exoseal to the Right Femoral artery. 13:36:42 Procedure ended.(Physican Out) 13:36:54 Fluoroscopy time 07.00 minutes. 13:36:59 Fluoroscopy dose: 342 mGy 13:36:59 Flurop Dose total: 342 13:37:05 Dose Area Product 23117 mGy/cm. 13:37:08 Contrast amount:Isovue 370 122ml. 13:37:11 Maximum allowable dose exceeded? No. 13:37:11 Sharps counted by scrub and verified by R.N. 13:37:15 Post-op/insertion site Right Femoral artery dressed using a 4 x 4 and Tegaderm. 13:37:22 Post right femoral artery:stable, soft, clean and dry 13:37:24 Post Procedure Pulses reassessed and unchanged 13:37:40 Post procedure: right dorsailis pedis pulse 2+ Normal; easily identifiable; not easily obliterated. 13:37:43 Post-procedure physical assessment completed. ASA score P 2 - A patient with mild systemic disease as per Nguyễn Shultz MD. 13:37:55 Post procedure rhythm: unchanged. 13:38:16 Estimated blood loss: 10 ml 13:38:18 Post procedure instruction explained to patient.Patient verbalizes understanding. 13:38:19 Patient needs reinforcement of post procedure teaching. 13:39:46 Procedure type changed to Cath procedure, Diagnostic procedure, LHC, C w/Coronaries, Sedation Charges, Moderate Sedation up to 30 minutes, PCI procedure, Coronary Stent, Coronary Stent Initial x2, Hemochron ACT Test 13:40:46 ACT drawn and resulted at 215 seconds. (normal therapeutic range 180-24 0 seconds). 13:40:53 Procedure and supply charges have been captured, reviewed, submitted an d are correct. 13:40:56 Procedure Complication : No complications 13:40:58 Vital chart was stopped 13:41:00 [facility] Findings: MVD- PCI performed (see procedure note) 13:41:01 Operative report dictated upon procedure completion. 13:41:01 See physician's report for complete and final results. 13:41:10 Report given to Pre/Post Procedure Room. 13:41:14 Patient transfered to Pre/Post Procedure Room with Stretcher. 13:41:16 Procedure ended. 13:41:16 Full Disclosure recording stopped 13:41:23 End room use (Document Last) 13:41:28 ACC-PCI Only Patient was given prescriptions, or instructed by Nguyễn Shultz MD to start/continue the following medications upon discharge: Plavix Intervention Summary Intervention Notes Time ActionType Lesion and Equipment Used Action# Pressure Duration Attributes 13:26:45 Discard HI RX 3.0 x Stent 08 stent ([id number]) 13:28:34 Inflate Mid CX EUPHORA 3.0 x 1 13 00:00 balloon 10 balloon ([id number]) 13:28:43 Reinflate Mid CX EUPHORA 3.0 x 2 11 00:00 balloon 10 balloon ([id number]) 13:28:56 Reinflate Mid CX EUPHORA 3.0 x 3 11 00:00 balloon 10 balloon ([id number]) 13:30:27 Place stent Mid CX HI RX 3.0 x 4 17 00:00 08 stent ([id number]) 13:32:37 Reinflate Ramus HI RX 3.0 x 1 9 00:00 stent 08 stent balloon ([id number]) 13:33:00 Reinflate Ramus HI RX 3.0 x 2 11 00:00 stent 08 stent balloon ([id number]) 13:35:25 Place stent Ramus HI RX 2.75 x 3 13 00:00 08 stent ([id number]) Device Usage Item Name Manufacture Quantity Catalog Hospital Part [facility] Lot# / Number Charge Number Stock Stock Serial# Code ACIST Syringe Acist 1 90475 161796 143115 193006 20 (31810) Medical Systems Inc Bag Decanter Microtek 1 2001S 609548 89769 844182 5 () Medical Inc. Medline Cath Medline 1 [id number] 611841 62482 958654 5 Pack ([id number]) ACIST Hand Acist 1 61973 031334 354967 490134 5 Control Medical (98369) Systems Inc ACIST Manifold Acist 1 42235 154021 045925 714458 5 (91738) Medical Systems Inc DIAGNOSTIC Cardinal 1 [id number] 710892 72441 734773 30 Multipack 5Fr Health catheter set (TU6796) SHEATH 5FR Terumo 1 GTP584 786198 923202 944790 5 Saffell (TQL692) EMERALD Guide Cardinal 1 502-455 611520 224347 214733 5 Wire (502-455) Health MULTIPACK Cardinal 1 392172 5 Pigtail 5 Fr Health catheter MULTIPACK JL Cardinal 1 604549 5 4.0 5Fr Health catheter MULTIPACK 3DRC Cardinal 1 407204 5 5Fr catheter Health Tegaderm 4 x 4 3M 1 1626W 130032 124381 890163 5 (1626W) INFLATOR Merit Merit 1 DA1386 867876 242267 652068 15 [facility] ([id number]) [facility] 1 [id number] 415582 1134050 0028457 0 190cm wire SHEATH 6FR Terumo 1 [id number] 473464 969098 376473 40 Saffell (WVE867) GUIDE 6FR Cardinal 1 [id number] 534231 070210 076972 10 XBLAD 3.5 Health catheter ([id number]) HI RX 3.0 x Medtronic 1 [id number] 318325 5218286 965656 5 [id number] 08 stent ([id number]) EUPHORA 3.0 x Medtronic 1 [id number] 020920 522172 148031 5 [id number] 10 balloon ([id number]) HI RX 2.75 x Medtronic 1 [id number] 443561 3418287 496220 5 [id number] 08 stent ([id number]) EXOSEAL 6Fr Cardinal 1 EX600 979732 797468 392196 10 (EX600) Health Signature Audit Tichnor Stage Time Signature Unsigned Intra-Procedure 05/15/2019 Sarah Harevy 1:41:50 PM RT(R) Intra-Procedure 05/15/2019 Lauren Edgar 1:42:08 PM RN Intra-Procedure 05/15/2019 Lauren Edgar 1:42:39 PM RN Intra-Procedure 05/15/2019 Nguyễn Shultz 1:42:59 PM [place] [id number] [place] [address]
[~2019-05-15 08:36] MED LIST changes: +BUPROPION XL300 MG PO
[2019-05-15] MEDS ORDERED: ZOCOR20 MG PO (08:46)
[2019-05-15] MEDS ORDERED: BUPROPION HCL150 M1 PO (08:46)
[2019-05-15] MEDS ORDERED: KLONOPIN1 MG PO (08:46)
[2019-05-15] MEDS ORDERED: SEROQUEL25 MG PO (08:46)
[2019-05-15] MEDS ORDERED: BAYER CHEWABLE81 MG PO (08:47)
[2019-05-15] MEDS ORDERED: LISINOPRIL20 MG PO (08:47)
[2019-05-15 09:02] VITALS: Ht 170.2 cm; Wt 74.1 kg
[2019-05-15 09:14] LABS: HEMATOCRIT 49.5 % (42.0-54.0); HEMOGLOBIN 16.7 g/dL (13.5-17.5); MCH 31.7 pg (26.0-34.0); MCHC 33.7 g/dL (31.0-37.0); MCV 94.1 fL (80.0-100.0); MEAN PLATELET VOLUME 8.6 fL (7.4-10.4); NEUTROPHILS 42.1 % (40-80); PLATELET COUNT 201 10x3/uL (130-400); RBC 5.26 10x6/uL (4.20-6.10); RDW 12.6 % (11.5-14.5); WBC 6.6 10x3/uL (4.8-10.8)
[2019-05-15 09:26] LABS: APTT 31.3 SECONDS (22.8-39.4); INR 1.02 (0.85-1.17); PROTIME 13.4 SECONDS (11.6-15.0)
[2019-05-15 09:28] LABS: CALC OSMOLALITY 280 mosm/kg (275-300); CALCIUM 9.5 mg/dL (8.5-10.1); CARBON DIOXIDE 24.6 mmol/L (21.0-32.0); CHLORIDE - SERUM 104 mmol/L (98-107); CREATININE - SERUM 0.9 mg/dL (0.6-1.3); GLUCOSE 145 mg/dL (74-106); POTASSIUM - SERUM 3.8 mmol/L (3.5-5.1); SODIUM 139 mmol/L (136-145); UREA NITROGEN 12 mg/dL (7-18); eGFR NON AFRICAN AMERICAN 90 mL/min (90-120)
[2019-05-15 09:48] LABS: ALBUMIN 4.3 g/dL (3.4-5.0); ALKALINE PHOSPHATASE 86 U/L (30-120); ALT (SGPT) 34 U/L (10-68); BILIRUBIN - TOTAL 0.82 mg/dL (0.2-1.3); CKMB 0.8 U/L (0.0-3.6); CREATINE KINASE 64 UL (21-232); PROTEIN - SERUM 7.5 g/dL (6.4-8.2)
[2019-05-15 09:50] LABS: TROPONIN-I < 0.017 ng/mL (0.000-0.060)
[2019-05-15 10:54] VITALS: BP 134/91
--- NOTE | 2019-05-15 13:39 | CN ---
PATIENT NAME:ATA BOLTON MEDICAL RECORD: [id number] : 55 LOCATION:D.ER ADMIT DATE: ACCOUNT: [id number] CONSULTING PHYSICIAN: REGINA FIGUEROA MD REFERRING PHYSICIAN: NABILA SEPULVEDA MD DATE OF CONSULTATION: 05/15/2019 DIAGNOSES: 1. Unstable angina. 2. Coronary artery disease. 3. Previous PTCA and stent. 4. Hypertension. 5. Hyperlipidemia. 6. Family history of coronary artery disease. HISTORY OF PRESENT ILLNESS: Mr. Bolton presented to our office earlier in the week with increasing anginal symptomatology. It was just like that of his previous angina. Last cardiac intervention was a year ago. We added a long-acting nitrate as well as a beta-emily. He has had increasing episodes of chest pain and progression of his angina, which is class IV, despite the medical management. PHYSICAL EXAMINATION: CONSTITUTIONAL/GENERAL APPEARANCE: Well nourished, well developed, appears stated age. EYES: Lids and conjunctivae noninjected. No discharge. No pallor. ENT: Lips within normal limit. No cyanosis. No pallor. NECK: Carotid arteries, bilateral normal upstroke. No bruits. No thrills. No jugular venous pressure or distention. CERVICAL LYMPH NODES: Nontender. Nonenlarged. THYROID: Not enlarged. No nodules. CARDIOVASCULAR: Precordial exam, nondisplaced. No heaves or pericardial thrills. Rate and rhythm, regular. Heart sounds, normal S1, normal S2. No S3, no gallop, no rub. Systolic murmur, not heard. Diastolic murmur, not heard. RESPIRATORY: Respiratory effort, unlabored. Normal curvature. No thoracic deformity. No chest wall tenderness. Percussion, resonant. Auscultation, clear. No wheezes, no rales, no rhonchi. ABDOMEN: Soft, nondistended, nontender. No abdominal pain, no vomiting and normal appetite. MUSCULOSKELETAL: No joint tenderness, normal gait, normal tone. SKIN: Warm and dry. OVERALL IMPRESSION: Unstable anginal symptomatology progression despite the addition of the beta-emily and the long-acting nitrate to his ZEINA inhibitor. We will increase the beta-emily as he is still tachycardic and is still hypertensive. Proceed with coronary angiography. Further care depends upon the findings of the angiography. TRANSINT:[id number] Voice Confirmation ID: [id number] DOCUMENT ID: [id number] CONSULT REPORT [id number] ATA BOLTON JEFFREY MD at 1339 CC: [id number] DICTATION DATE: 05/15/19903 [employer] OPERATOR: 05/15/19 [address] [id number] [place] [id number]
--- NOTE | 2019-05-15 14:00 | NUR ---
PT REC'D TO ROOM 1 VIA STRETCHER FROM FISCAL OFFICER. MONITORS ESTAB. SEE BANKRUPTCY LEGAL ASSISTANT. ALARMS ON AND C/L IN REACH.
--- NOTE | 2019-05-15 14:15 | NUR ---
PT WITH NAUSEA, NO VOMITING - DR. FIGUEROA NOTIFIED. ADMIN ZOFRAN 4MG SIVP. R GROIN SITE C/D/I, NO S/S OF BLEEDING OR HEMATOMA.
[2019-05-15] MEDS ORDERED: PLAVIX75 MG PO (14:16)
--- NOTE | 2019-05-15 14:30 | NUR ---
R GROIN SITE SOFT, NO S/S BLEEDING OR HEMATOMA. FRIEND AT BS. GI COCKTAIL GIVEN PER MD ORDER. ALARMS ON AND C/L IN REACH.
--- NOTE | 2019-05-15 14:45 | NUR ---
R GROIN SITE C/D/I, PT WATCHING TV. REPORTS "FEELING BETTER". ALARMS ON AND C/L IN REACH.
--- NOTE | 2019-05-15 15:24 | NUR ---
DR. FIGUEROA IN TO TALK TO PT. MARYS. R JAMARCUS SITE C/D/I.
--- NOTE | 2019-05-15 15:52 | NUR ---
R GROIN SITE SOFT, NO S/S BLEEDING OR HEMATOMA.
--- NOTE | 2019-05-15 16:30 | NUR ---
R GROIN SITE C/D/I, NO S/S BLEEDING OR HEMATOMA. R LEG/FOOT WARM WITH PALP PULSES. HOB ELEVATED AND SANDWICH TRAY PROVIDED.
--- NOTE | 2019-05-15 17:21 | NUR ---
R GROIN SITE SOFT, NO S/S BLEEDING OR HEMATOMA. PIV D/C'D INTACT. PT ALLOWED TO GET UP AND GET DRESSED.
--- NOTE | 2019-05-15 17:35 | NUR ---
ALL DISCHARGE INSTRUCTIONS REVIEWED WITH PT. PT UP TO BR INDEPENDENTLY, THEN D/C'D VIA W/C TO PRIVATE VEHICLE WITH ALL PAPER WORK AND BELONGINGS.
== END 2019-05-15 17:35 | disposition home or self-care (01) ==
LOC: D.ER 08:36 → D.CATH 08:36 → EDSTATUS 14:10 → D.CLR 14:11 → D.CATH 17:35
PROVIDERS: Family Medicine; ATTEND Internal Medicine Interventional Cardiology
DX: I25.110 Atherosclerotic heart disease of native coronary artery with unstable angina pectoris (principal); I10 Essential (primary) hypertension; Z72.0 Tobacco use; E78.5 Hyperlipidemia, unspecified
CPT/HCPCS: 93458; C9600 ×2

== ENCOUNTER → 2019-09-14 09:18 | Outpatient (CLI) | payer OTHER ==
[2019-05-15 09:02] VITALS: BMI 25.6
[~2019-09-14 09:18] MED LIST changes: +BUPROPION HCL150 M1 PO; +KLONOPIN1 MG PO; +LISINOPRIL20 MG PO; +SEROQUEL25 MG PO; +ZOCOR20 MG PO
== END | disposition home or self-care (01) ==
LOC: D.HCCARDIO 09:18
PROVIDERS: ATTEND Internal Medicine Cardiovascular Disease
DX: I25.10 Atherosclerotic heart disease of native coronary artery without angina pectoris (principal)

== ENCOUNTER 2019-10-06 05:53 | Outpatient (CLI) | payer OTHER ==
[~2019-10-06] VITALS: Ht 170.2 cm; Wt 79.1 kg
--- NOTE | ~2019-10-06 | HEMODYNAMI ---
PATIENT:ATA MCKEON MEDICAL RECORD: [id number] : 55 LOCATION:[facility] ADMISSION DATE: 10/06/19 Generatedon:10/06/20199:03 Patient name: ATA MCKEON Patient #: [id number] : 1955 Date of study: 10/06/2019 Page: Of Hemodynamic Procedure Report Patient Data Patient Demographics Procedure consent was obtained First Name: ATA Gender: Male Last Name: LINDA : 1955 [facility] Initial: ROSALVA Age: 64 year(s) Patient #: [id number] Race: SSN: [id number] Additional ID: [id number] Contact details Address: [place] [address] State: [place] City: [place] Zip code: [address] Past Medical History History of disease Date Diagnosis Comments 09/26/2015 CAD Allergies Allergen Reaction Date Comments Reported Other allergy 10/08/2018 Losartan Other allergy 05/15/2019 losartan Other allergy 10/06/2019 LOSARTAN Admission Admission Data Admission Date: 10/06/2019 Admission Time: 5:53 Lab Results Lab Result Date: 10/06/2019 Lab Result Time: 0:00 Biochemistry Name Units Result Min Max BUN mg/dl 13 --(--*-)-- 7 18 Creatinine mg/dl 0.8 --(-*--)-- 0.6 1.3 eGFR ml/min 90 --(*---)-- 90 120 NONAFRICAN CBC Name Units Result Min Max Hemoglobin g/dl 14.1 --(*---)-- 13.5 17.5 Procedure Procedure Types Cath Procedure Diagnostic Procedure LHC LHC w/Coronaries Sedation Charges Moderate Sedation up to 15 minutes Procedure Description Procedure Date Procedure Date: 10/06/2019 Procedure Start Time: 8:47 Procedure End Time: 9:01 Procedure Staff Name Function Madhu Chavez MD Performing Physician Chandrakant Vasquez RN Nurse Betzaida Riley RT Scrub Sarah Harvey RT Monitor Procedure Data Cath Procedure Fluoroscopy Diagnostic fluoroscopy Total fluoroscopy Time: 1.7 time: 1.7 min min Diagnostic fluoroscopy Total fluoroscopy dose: 416 dose: 416 mGy mGy Contrast Material Contrast Material Type Amount (ml) Isovue 370 69 Entry Location Entry Primary Successful Side Size Upsize Upsize Entry Closure Succes sful Closure Location (Fr) 1 (Fr) 2 (Fr) Remarks Device Remarks Femoral Right 5 Fr Exoseal artery Estimated blood loss: 5 ml Diagnostic catheters Device Type Used For End Catheter Placement MULTIPACK JL 4.0 5Fr Procedure catheter MULTIPACK 3DRC 5Fr Procedure catheter MULTIPACK Pigtail 5 Fr Procedure catheter Procedure Complications No complications Procedure Medications Medication Administration Route Dosage 0.9% NaCl I.V. 100 ml/hr Oxygen etCO2 Nasal cannula 2 l/min Heparin Flush Bag added to field 2 bags (1000units/500ml NS) Lidocaine 2% added to field 20 Versed I.V. 2 mg Fentanyl I.V. 100 mcg Versed I.V. 2 mg Fentanyl I.V. 100 mcg Versed I.V. 2 mg Hemodynamics Rest HGB: 14.1 (g/dl) Heart Rate: 61 (bpm) Pressure Samples Time Site Value (mmHg) Purpose Heart Use Rate(bpm) 8:56 LV 115/1,4 Snapshot 56 8:57 AO 116/56(82) Pullback 58 8:57 LV 142/-6,23 Pullback 58 Gradients Valve Time Site 1 Site 2 Mean SEP/DFP Peak To Heart Use (mmHg) (sec/min) Peak Rate (mmHg) (bpm) Aortic 8:57 LV AO 15 20 26 58 142/-6,23 116/56(82) Calculations Valve P-P Mean Valve Index Valve Source Name Gradient Area Flow (cm2) Aortic 26 15 26 15 Snapshots Pre Cath Intra NCS Post Cath Vital Signs Time Heart Resp SPO2 etCO2 NIBP (mmHg) Rhythm Pain Sedation Rate (ipm) (%) (mmHg) Status Level (bpm) 8:22:56 57 18 99 20.2 131/84(111) NSR 0 (11) 10(A) , No pain 8:27:02 56 13 96 33 129/83(106) NSR 0 (11) 10(A) , No pain 8:31:10 56 12 98 36 119/77(93) NSR 0 (11) 10(A) , No pain 8:35:09 57 17 99 34.5 133/91(110) NSR 0 (11) 10(A) , No pain 8:39:19 56 13 98 40.5 133/76(100) NSR 0 (11) 10(A) , No pain 8:43:27 58 26 98 30.8 114/90(105) NSR 0 (11) 10(A) , No pain 8:47:27 59 12 93 21 122/87(97) NSR 0 (11) 10(A) , No pain 8:51:31 57 11 97 33.7 120/86(100) NSR 0 (11) 9(A) , No pain 8:55:36 55 10 97 41.2 125/70(94) NSR 0 (11) 9(A) , No pain 8:59:44 59 12 94 39.8 117/70(94) NSR 0 (11) 10(A) , No pain Medications Time Medication Route Dose Verified Delivered Reason Notes Effe ctiveness by by 8:22:09 0.9% NaCl I.V. 100 Chandrakant Chandrakant Per ml/hr Christina Vasquez physician RN RN 8:22:20 Oxygen etCO2 2 Chandrakant Chandrakant for low 02 Nasal l/min Lorigan Lorigan sats cannula RN RN 8:22:32 Heparin Flush added 2 Chandrakant Chandrakant used for Bag to bags Lorigan Lorigan procedure (1000units/500ml field RN RN NS) 8:22:45 Lidocaine 2% added 20ml Chandrakant Chandrakant for local to vial Lorigan Lorigan anesthetic field RN RN 8:37:07 Versed I.V. 2 mg Chandrakant Chandrakant for Lorigan Lorigan sedation RN RN 8:37:16 Fentanyl I.V. 100 Chandrakant Chandrakant for mcg Lorigan Lorigan sedation RN RN 8:44:29 Versed I.V. 2 mg Chandrakant Chandrakant for Lorigan Lorigan sedation RN RN 8:44:37 Fentanyl I.V. 100 Chandrakant Chandrakant for mcg Lorigan Lorigan sedation RN RN 8:48:44 Versed I.V. 2 mg Chandrakant Chandrakant for Lorigan Lorigan sedation RN cellular biologist Log Time Note 7:52:50 Diagnostic Cath Status : Elective 7:55:06 Informed consent obtained and on chart 8:01:15 Lab Result : eGFR NONAFRICAN 90 ml/min 8:01:15 Lab Result : Hemoglobin 14.1 g/dl 8::15 Lab Result : BUN 13 mg/dl 8::15 Lab Result : Creatinine 0.8 mg/dl 8:03:46 1) 90+ Normal kidney functon but urine findings or structural abnormalities or genetic trait point to kidney disease. 8:03:50 Maximum allowable contrast dose (3.7 X eGFR X 0.75)249 ml. 8:03:57 Risk of Mortality: 0.1 8:04:01 Risk of blood transfusion: 0.2 8:04:05 Risk of EULALIO: 0.1 8:04:35 Procedure Status Elective Heart Cath (OP). 8:04:39 Chandrakant Vasquez RN sent for patient. Start room use. 8:04:41 Time tracking: Regular hours (M-F 7:00 - 5:00) 8:04:45 Plan of Care:Hemodynamics will remain stable., Cardiac rhythm will remain stable., Comfort level will be maintained., Respiratory function will remain adequate., Patient/ family verbilizes understanding of procedure., Procedure tolerated without complication., Recovers from procedure without complications.. 8:13:47 Patient received from Pre/Post Procedure Room to CCL 1 Alert and oriented. Tansferred to table in Supine position. 8:13:48 Warm blankets applied, and christian hugger turned on for patient comfort. 8:13:49 Correct patient and procedure confirmed by team. 8:13:49 ECG and BP/O2 sat monitors applied to patient. 8:13:57 H&P Date Dictated: 09/24/2019 Within 30 days and on chart.. 8:13:59 Pre-procedure instructions explained to patient. 8:13:59 Pre-op teaching completed and patient verbalized understanding. 8:14:01 Family in waiting room. 8:14:02 Patient NPO since Midnight. 8:14:05 Is the patient allergic to Iodine/contrast media? No. 8:17:19 Was the patient premedicated? Yes 8:18:51 Patient allergic to Other allergyLOSARTAN 8:18:54 Is patient on blood thinner?Yes 8:18:59 ACC The patient was administered the following blood thiners within the last 24 hours: ACCPlavix 8:19:03 Patient diabetic? No. 8:19:10 Previous problem with sedation/anesthesia? No ? 8:19:12 Snore? Yes 8:19:13 Sleep apnea? No 8:19:14 Deviated septum? No 8:19:14 Opens mouth fully? Yes 8:19:15 Sticks out tongue? Yes 8:19:17 Airway obstruction? No ? 8:19:19 Dentures? Yes ? 8:19:22 Pre procedure: right dorsailis pedis pulse 1+ Palpable, but thready & weak; easily obliterated 8:19:26 Lab results completed and on chart. 8:19:29 Right groin area was prepped with chlora-prep and draped in sterile fashion 8:19:30 Alarms reviewed by R. N. 8:19:30 Sharps counted by scrub and verified by R.N. 8:19:35 Use device set Femoral Dx 8:19:38 ACIST Syringe (87437) opened to sterile field. 8:19:39 Bag Decanter (2002S) opened to sterile field. 8:19:40 ACIST Hand Control (50363) opened to sterile field. 8:19:40 ACIST Manifold (46095) opened to sterile field. 8:21:37 DIAGNOSTIC Multipack 5Fr catheter set ([id number]) opened to sterile field. 8:21:38 SHEATH 5FR Avon (MLC286) opened to sterile field. 8:21:39 EMERALD Guide Wire (581-416) opened to sterile field. 8:21:40 Medline Cath Pack ([id number]) opened to sterile field. 8:21:46 Vital chart was started 8:21:47 Baseline sample Acquired. 8:21:48 Full Disclosure recording started 8:21:56 Patient pain scale 0/10 ?. 8:22:03 IV patent on arrival in left antecubital with 0.9% NaCl at KVO. 8:22:09 0.9% NaCl 100 ml/hr I.V. was administered by Chandrakant Vasquez RN; Per physician; Verbal order read back and verified. 8:22:13 Rhythm: sinus bradycardia 8:22:20 Oxygen 2 l/min etCO2 Nasal cannula was administered by Chandrakant Vasquez RN; for low 02 sats; Verbal order read back and verified. 8:22:32 Heparin Flush Bag (1000units/500ml NS) 2 bags added to field was administered by Chandrakant Vasquez RN; used for procedure; Verbal order read back and verified. 8:22:45 Lidocaine 2% 20ml vial added to field was administered by Chandrakant Vasquez RN; for local anesthetic; Verbal order read back and verified. 8:36:03 --------ALL STOP TIME OUT------ 8:36:03 Final Timeout: patient, procedure, and site verified with staff and physician. All members of the team are in agreement. 8:36:05 Right groin site verified by team. 8:36:09 Fire Safety Assessment: A--An alcohol-based skin anteseptic being used preoperatively., C--Open oxygen or nitrous oxide is being used., D--An ESU, laser, or fiber-optic light is being used. 8:36:13 Physical assessment completed. ASA score P 2 - A patient with mild systemic disease as per Madhu Chavez MD. 8:36:16 Sedation plan: IV Moderate Sedation Medication:Versed, Fentanyl 8:37:07 Versed 2 mg I.V. was administered by Chandrakant Vasquez RN; for sedation; Verbal order read back and verified. 8:37:16 Fentanyl 100 mcg I.V. was administered by Chandrakant Vasquez RN; for sedation; Verbal order read back and verified. 8:37:28 Baseline sample Acquired. 8:44:29 Versed 2 mg I.V. was administered by Chandrakant Vasquez RN; for sedation; Verbal order read back and verified. 8:44:37 Fentanyl 100 mcg I.V. was administered by Chandrakant Vasquez RN; for sedation; Verbal order read back and verified. 8:46:40 Procedure started. 8:47:17 Local anesthetic to right femoral artery with Lidocaine 2% by Madhu Chavez MD.INITIAL ACCESS ONLY 8:48:44 Versed 2 mg I.V. was administered by Chandrakant Vasquez RN; for sedation; Verbal order read back and verified. 8:49:01 A 5 Fr sheath was inserted into the Right Femoral artery 8:49:56 A MULTIPACK JL 4.0 5Fr catheter was advanced over the wire and used for Procedure. 8:50:43 LCA angiography performed. 8:50:50 Injector settings: Ml/sec: 3, Volume: 6, 8:52:37 Catheter exchanged over wire. 8:53:56 A MULTIPACK 3DRC 5Fr catheter was advanced over the wire and used for Procedure. 8:54:40 RCA angiography performed. 8:54:43 Injector settings: Ml/sec: 3, Volume: 6, 8:54:45 ACCDominant side:Right 8:55:21 Catheter exchanged over wire. 8:55:30 A MULTIPACK Pigtail 5 Fr catheter was advanced over the wire and used for Procedure. 8:56:24 LV gram done using NELSON 8:56:28 Injector settings: Ml/sec: 5, Volume: 15, 8:56:43 LV hemodynamics recorded. 8:56:51 EF : 55 % 8:57:09 Catheter removed. 8:57:53 EXOSEAL 5Fr (EX500) opened to sterile field. 8:58:14 Sheath removed intact; hemostasis achieved with Exoseal to the Right Femoral artery. 8:58:23 Fluoroscopy time 01.70 minutes. 8:58:27 Fluoroscopy dose: 416 mGy 8:58:27 Flurop Dose total: 416 8:58:33 Dose Area Product 21398 mGy/cm. 8:58:36 Contrast amount:Isovue 370 69ml. 8:58:39 Maximum allowable dose exceeded? No. 8:58:40 Sharps counted by scrub and verified by R.N. 8:58:41 Procedure ended.(Physican Out) 8:59:08 Post-op/insertion site Right Femoral artery dressed using a 4 x 4 and Tegaderm. 8:59:12 Post right femoral artery:stable, soft, clean and dry 8:59:14 Post Procedure Pulses reassessed and unchanged 8:59:16 Post procedure: right dorsailis pedis pulse 2+ Normal; easily identifiable; not easily obliterated. 8:59:19 Post-procedure physical assessment completed. ASA score P 2 - A patient with mild systemic disease as per Madhu Chavez MD. 8:59:21 Post procedure rhythm: unchanged. 8:59:24 Estimated blood loss: 5 ml 8:59:25 Post procedure instruction explained to patient.Patient verbalizes understanding. 8:59:25 Patient needs reinforcement of post procedure teaching. 8:59:39 Procedure type changed to Cath procedure, Diagnostic procedure, LHC, [facility] w/Coronaries, Sedation Charges, Moderate Sedation up to 15 minutes 9:00:13 Procedure and supply charges have been captured, reviewed, submitted and are correct. 9:00:17 Procedure Complication : No complications 9:00:23 [facility] Findings: mild to moderate CAD (<70%) 9:00:24 Operative report dictated upon procedure completion. 9:00:25 See physician's report for complete and final results. 9:00:27 Report given to Pre/Post Procedure Room. 9:00:29 Patient transfered to Pre/Post Procedure Room with Stretcher. 9:01:49 Vital chart was stopped 9::52 Procedure ended. 9::52 Full Disclosure recording stopped 9:02:01 ACC-PCI Only Patient was given prescriptions, or instructed by Madhu Chavez MD to start/continue the following medications upon discharge: Plavix 9:02:02 End room use (Document Last) 9:02:20 End room use (Document Last) 9:02:47 End room use (Document Last) Device Usage Item Name Manufacture Quantity Catalog Hospital Part Current Minimal L ot# / Number Charge Number Stock Stock Serial# Code ACIST Acist 1 11131 912090 193806 321547 20 Syringe Medical (77753) Systems Inc Bag Microtek 1 509736 20748 305339 5 Decanter Medical Inc. () ACIST Hand Acist 1 94374 910689 285171 927310 5 Control Medical (48396) Systems Inc ACIST Acist 1 25252 320614 247971 883563 5 Manifold Medical (00247) Systems Inc DIAGNOSTIC Cardinal 1 BS5441 344126 28144 816346 30 Multipack Health 5Fr catheter set (FV4993) SHEATH 5FR Terumo 1 [id number] 583675 196203 566014 5 Avon (FND491) EMERALD Cardinal 1 502-455 816550 537360 801493 5 Guide Wire [facility] (544-488) Medline Medline 1 [id number] 789897 78093 430342 5 Cath Pack ([id number]) MULTIPACK Cardinal 1 800837 5 JL 4.0 5Fr Health catheter MULTIPACK Cardinal 1 292314 5 3DRC 5Fr Health catheter MULTIPACK Cardinal 1 880954 5 Pigtail 5 Health Fr catheter EXOSEAL 5Fr Cardinal 1 EX500 092630 130963 450978 10 (EX500) Health Signature Audit Ethel Stage Time Signature Unsigned Intra-Procedure 10/06/2019 Sarah Harvey 9:02:20 AM RT(R) Intra-Procedure 10/06/2019 Chandrakant 9:02:47 AM Christina RN Intra-Procedure 10/06/2019 Madhu Chavez MD 9:03:07 AM Signatures Performing Physician : Signature : Madhu Chavez MD Date : Time : Nurse : Chandrakant Vasquez Signature : RN Date : Time : Monitor : Sarah Harvey Signature : RT Date : Time : [facility] [address] [place] [place] [address], [place] [address]
[2019-10-06] MEDS ORDERED: LIPITOR40 MG PO (07:10)
[2019-10-06 07:23] VITALS: BP 125/80; Ht 170.2 cm; Wt 79.1 kg
[2019-10-06 07:32] LABS: BASOPHILS 0.1 % (0-2); EOSINOPHILS 4.3 % (0-7); HEMOGLOBIN 14.1 g/dL (13.5-17.5); IMMATURE GRANULOCYTES 0.4 % (0-5); LYMPHOCYTES 31.6 % (15-50); MCH 32.4 pg (26.0-34.0); MCHC 33.6 g/dL (31.0-37.0); MCV 96.6 fL (80.0-100.0); MEAN PLATELET VOLUME 8.9 fL (7.4-10.4); MONOCYTES 8.9 % (2-11); NEUTROPHILS 54.7 % (40-80); PLATELET COUNT 203 10x3/uL (130-400); RBC 4.35 10x6/uL (4.20-6.10); RDW 12.6 % (11.5-14.5); WBC 7.6 10x3/uL (4.8-10.8)
[2019-10-06 07:46] LABS: ALT (SGPT) 51 U/L (10-68); CALC OSMOLALITY 283 mosm/kg (275-300); CALCIUM 8.5 mg/dL (8.5-10.1); CARBON DIOXIDE 26.6 mmol/L (21.0-32.0); CHLORIDE - SERUM 108 mmol/L (98-107); CHOL - HDL RATIO 3.3 ratio (2.3-4.9); CHOLESTEROL, TOTAL 140 mg/dL (0-200); CREATININE - SERUM 0.8 mg/dL (0.6-1.3); GLUCOSE 114 mg/dL (74-106); HDL CHOLESTEROL 42 mg/dL (32-96); LDL CHOLESTEROL 81 mg/dL (0-100); LDL-HDL RATIO 1.9 ratio (1.5-3.5); POTASSIUM - SERUM 3.9 mmol/L (3.5-5.1); SODIUM 142 mmol/L (136-145); TRIGLYCERIDE 88 mg/dL (30-200); UREA NITROGEN 13 mg/dL (7-18); eGFR NON AFRICAN AMERICAN > 90 mL/min (90-120)
--- NOTE | 2019-10-06 09:19 | NUR ---
PT ARRIVED BY STRETCHER. PLACED ON MONITORS. ASSESSMENT COMPLETED. VSS AT THIS TIME. CALL LIGHT WITHIN REACH.
--- NOTE | 2019-10-06 09:35 | NUR ---
RIGHT GROIN DRESSING C/D/I. NO S/S OF HEMATOMA NOTED. VSS. RIGHT PEDAL PULSE PALPABLE. NO NEEDS AT THIS TIME. DENIES NAUSEA/PAIN.
--- NOTE | 2019-10-06 10:03 | NUR ---
PT RESTING COMFORTABLY. VSS. RIGHT GROIN DRESSING C/D/I. NO S/S OF HEMATOMA NOTED. CALL LIGHT WITHIN REACH. NO NEEDS. DENIES NAUSEA/PAIN.
--- NOTE | 2019-10-06 10:15 | NUR ---
RIGHT GROIN DRESSING C/D/I. NO S/S OF HEMATOMA NOTED. CALL LIGHT WITHIN REACH. VSS AT THIS TIME. HEAD OF BED INC TO 30 DEGREES. TOLERATED WELL. SET UP WITH SANDWICH TRAY AND DRINK. DENIES NAUSEA AND PAIN.
--- NOTE | 2019-10-06 11:05 | NUR ---
RIGHT GROIN DRESSING C/D/I. NO S/S OF HEMATOMA NOTED. CALL LIGHT WITHIN REACH. VSS AT THIS TIME. PIV D/C'D WITH CATH TIP INTACT. TOLERATED WELL. PT INSTRUCTED TO GET UP AND DRESSED AT THIS TIME. O2 SAT 97% ON ROOM AIR. NO ASSISTANCE NEEDED.
--- NOTE | 2019-10-06 11:13 | NUR ---
DISCUSSED DISCHARGE INSTRUCTIONS WITH PT. HE VOICED UNDERSTANDING. PT AMBULATED TO RESTROOM AND VOIDED WITHOUT DIFFICULTY. STEADY GAIT NOTED.
--- NOTE | 2019-10-06 11:20 | NUR ---
PT TAKEN DOWN TO VEHICLE BY WHEELCHAIR. NO S/S OF DISTRESS NOTED. ALL BELONGINGS AND PAPERWORK IN HAND. RIGHT GROIN DRESSING C/D/I. NO S/S OF HEMATOMA NOTED.
== END 2019-10-06 11:20 | disposition home or self-care (01) ==
LOC: D.CATH 05:53
PROVIDERS: ATTEND Internal Medicine Cardiovascular Disease
DX: I25.119 Atherosclerotic heart disease of native coronary artery with unspecified angina pectoris (principal); I10 Essential (primary) hypertension; E78.5 Hyperlipidemia, unspecified; R94.39 Abnormal result of other cardiovascular function study

== ENCOUNTER → 2020-08-18 08:18 | Outpatient (CLI) | payer OTHER ==
[2019-10-06 07:23] VITALS: BMI 27.3
--- NOTE | 2020-08-19 09:25 | ST ---
PATIENT:ATA MCKEON MEDICAL RECORD: [id number] SEX: M LOCATION:[facility] ORDER #: ADMISSION DATE: 08/18/20 AGE OF PATIENT: 65 REFERRING PHYSICIAN: INTERPRETING PHYSICIAN: ELIS CAMERON MD DATE OF SERVICE: 08/18/2020 NUCLEAR STRESS TEST GATED: Gated is normal with normal wall motion. Normal wall thickening. Calculated EF 79%. SPECT IMAGING: SPECT imaging was performed. Short axis view: Short axis view shows good uptake along the anterior wall, lateral wall, and inferior wall. Horizontal axis: Horizontal axis confirms good uptake along the anterior wall and inferior wall. Vertical axis: Vertical axis shows good uptake along the lateral wall and septum. FINAL IMPRESSION: 1. Normal gated with normal wall motion, normal ejection fraction 79%. 2. Normal SPECT imaging. FINAL RECOMMENDATIONS: This scan is felt to represent low risk for any significant myocardial ischemia or previous myocardial infarction. LV function is normal. Continued risk factor modification is recommended. TRANSINT:[id number] Voice Confirmation ID: [id number] DOCUMENT ID: [id number] ELIS CAMERON MD at 0925 CC: [id number] DICTATION DATE: 08/18/20 1656 TELETYPESETTER MONITOR: 08/19/20 0723 DEP CLI 08/18/[address] [address]
== END | disposition home or self-care (01) ==
LOC: D.HCCARDIO 08:18
PROVIDERS: ATTEND Internal Medicine Interventional Cardiology
DX: I25.10 Atherosclerotic heart disease of native coronary artery without angina pectoris (principal)